=== PATIENT | male | born 1995 ===

== ENCOUNTER → 2020-08-01 11:00 | Outpatient (BNVA) | payer OTHER, SELFPAY | PROVIDERS: PCP Nurse Practitioner; Visit Provider Surgery ==

== ENCOUNTER 2020-08-02 10:05 | Outpatient (REF) | payer OTHER, SELFPAY ==
--- NOTE | ~2020-08-02 | XR_ITS ---
EXAMINATION: XR CHEST CLINICAL INFORMATION: Shortness of breath COMPARISON: None TECHNIQUE: 2 views of the chest were obtained. FINDINGS: No significant abnormality is noted involving the heart, lungs, mediastinum, bony thorax or soft tissues. XR/XR chest 2V IMPRESSION: Unremarkable examination.
--- NOTE | 2020-08-02 10:13 | ECG_ITS ---
Test Reason : SOB Blood Pressure : / mmHG Vent. Rate : 061 BPM Atrial Rate : 061 BPM P-R Int : 146 ms QRS Dur : 098 ms QT Int : 412 ms P-R-T Axes : 054 006 030 degrees QTc Int : 414 ms Normal sinus rhythm with sinus arrhythmia Normal ECG No previous ECGs available Referred By: Nickie Hernandes Electronically Signed By:SIMON BLAKE
[2020-08-02 12:06] LABS: MANUAL DIFF FLAG NO
[2020-08-02 12:10] LABS: Basophils Percent Auto 0.5 % (0-2); Eosinophils Absolute Auto 0.2 X10*3/uL (0.0-0.4); Eosinophils Percent Auto 2.1 % (0-4); Hemoglobin 15.4 g/dl (14.0-18.0); Imm Gran Abs Auto 0.04 X10*3/uL (0.00-0.03); Imm Gran Pct Auto 0.5 % (0.0-0.4); Lymphocytes Absolute Auto 1.8 X10*3/uL (1.2-4.9); Lymphocytes Percent Auto 21.6 % (20-40); Mean Corpuscular HGB Conc 32.1 g/dl (31.0-36.0); Mean Corpuscular Hemoglobin 28.1 pg (27.0-33.0); Mean Corpuscular Volume 87.6 fL (80-98); Mean Platelet Volume 12.4 fL (9.4-12.4); Monocytes Absolute Auto 0.7 X10*3/uL (0.1-1.2); Monocytes Percent Auto 8.8 % (2-11); Neutrophils Absolute Auto 5.6 X10*3/uL (2.0-8.3); Neutrophils Percent Auto 66.5 % (45-73); Platelet Count 223 X10*3/uL (160-400); Red Blood Count 5.48 X10*6/uL (4.60-5.80); White Blood Count 8.4 X10*3/uL (4.8-10.8)
[2020-08-02 12:39] LABS: Alanine Aminotransferase 57 U/L (0-40); Albumin Level 4.6 g/dL (3.5-5.0); Alkaline Phosphatase 66 U/L (39-117); Anion Gap 16 (12-20); Aspartate Amino Transferase 32 U/L (5-37); Bilirubin Total 0.5 mg/dL (0.0-1.0); Blood Urea Nitrogen 13 mg/dL (9-16); C Reactive Protein 0.29 mg/dL (< or = 0.50); Calcium 9.2 mg/dL (8.4-10.2); Carbon Dioxide 25 mmol/L (22-29); Chloride 104 mmol/L (96-108); Cholesterol 114 mg/dL; Estimated Average Glucose 103 mg/dL; Estimated Glomerular Filt Rate > 60; Glucose Fasting 80 mg/dL (60-99); HDL Cholesterol 34 mg/dL; Hemoglobin A1c % 5.2 %; Iron 87 mcg/dL (45-160); LDL Cholesterol Calculated 64 mg/dl; Percent Iron Saturation 26 % (15-50); Potassium 4.7 mmol/L (3.3-5.1); Sodium 140 mmol/L (135-145); Total Iron Binding Capacity 330 mcg/dL (228-428); Total Protein 7.7 g/dL (6.5-8.0); Triglycerides 84 mg/dL; Unsaturated Iron Binding 243 ug/dL
[2020-08-02 13:03] LABS: Thyroid Stimulating Hormone 1.71 uIU/mL (0.32-4.0); Vitamin D 25-OH Total 7.5 ng/mL (>30)
[2020-08-02 13:32] LABS: Vitamin B12 192 pg/mL (200-900)
[2020-08-03 12:36] LABS: H Pylori Breath Test NOT DETECTED (NOT DETECTED)
[2020-08-03 18:11] LABS: Calcium (PTHI) 9.4 mg/dL (8.6-10.3); PTHI 39 pg/mL (14-64)
[2020-08-05 05:41] LABS: Zinc 83 mcg/dL (60-130)
[2020-08-07 10:12] LABS: Vitamin A 27 mcg/dL (38-98)
[2020-08-07 12:12] LABS: Vitamin B1 <6 nmol/L (8-30)
== END 2020-08-02 10:06 | disposition home or self-care (01) ==
LOC: HO.LAB 10:05
PROVIDERS: PCP Internal Medicine; Visit Provider Surgery
DX: Z01.818 Encounter for other preprocedural examination (principal); R06.02 Shortness of breath; K21.9 Gastro-esophageal reflux disease without esophagitis; Z90.3 Acquired absence of stomach [part of]
CPT/HCPCS: 36415; 71046; 80053; 80061; 82306; 82607; 83013; 83036; 83540; 83970; 84425; 84443; 84590; 84630; 85025; 86140; 93005; 99211

== ENCOUNTER → 2020-08-18 08:21 | Outpatient (BNVA) | payer OTHER, SELFPAY | PROVIDERS: PCP Nurse Practitioner; Visit Provider Surgery | DX: E66.9 Obesity, unspecified (principal); Z68.37 Body mass index [BMI] 37.0-37.9, adult | CPT/HCPCS: 99212 ==

== ENCOUNTER → 2020-09-15 10:04 | Outpatient (BNVA) | payer OTHER, SELFPAY | PROVIDERS: PCP Nurse Practitioner; Visit Provider Surgery | DX: E66.9 Obesity, unspecified (principal); Z68.35 Body mass index [BMI] 35.0-35.9, adult | CPT/HCPCS: 99212 ==

== ENCOUNTER → 2020-09-20 08:04 | Outpatient (BNVA) | payer OTHER, SELFPAY | PROVIDERS: PCP Nurse Practitioner; Visit Provider Dietitian, Registered | DX: E66.01 Morbid (severe) obesity due to excess calories (principal); Z68.34 Body mass index [BMI] 34.0-34.9, adult | CPT/HCPCS: 97802 ==

== ENCOUNTER 2020-09-22 09:18 | Outpatient (REF) | payer OTHER, SELFPAY ==
[2020-09-22 11:01] LABS: Vitamin D 25-OH Total 67.1 ng/mL (>30)
[2020-09-27 10:57] LABS: Vitamin A 36 mcg/dL (38-98)
[2020-09-27 15:51] LABS: Vitamin B1 12 nmol/L (8-30)
== END 2020-09-22 09:19 | disposition home or self-care (01) ==
LOC: HO.LAB 09:18
PROVIDERS: PCP Internal Medicine; Visit Provider Surgery
DX: Z01.818 Encounter for other preprocedural examination (principal); E55.9 Vitamin D deficiency, unspecified; E51.9 Thiamine deficiency, unspecified; E50.9 Vitamin A deficiency, unspecified
CPT/HCPCS: 36415; 82306; 84425; 84590

== ENCOUNTER → 2020-10-18 10:36 | Outpatient (BNVA) | payer OTHER, SELFPAY | PROVIDERS: PCP Nurse Practitioner; Visit Provider Physician Assistant | DX: E66.9 Obesity, unspecified (principal); Z68.35 Body mass index [BMI] 35.0-35.9, adult | CPT/HCPCS: 99212 ==

== ENCOUNTER 2020-12-22 18:08 | Emergency (ER) | payer OTHER, SELFPAY ==
[2020-12-22 18:15] VITALS: BP 110/69; PULSE 56; RESP 16; TEMP 36.7; O2SAT 100; BMI 30.5
--- NOTE | 2020-12-22 18:54 | ED_ITS ---
HPI - Back Pain/Injury General Chief Complaint: Back Pain/Injury Stated Complaint: BACK PAIN Time Seen by Provider: 12/22/20 18:37 Source: patient and family Mode of arrival: ambulatory Limitations: no limitations History of Present Illness HPI Narrative: 5-year-old male here with left-sided back pain for 5 days. 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 No radiation of pain. No numbness or tingling. No bowel or bladder incontinence. No fevers or chills. No chest pain, shortness of breath or cough. No leg swelling or pain. Related Data Home Medications Medication Instructions Recorded Confirmed herbal complex no.174 450 mg mg PO 08/01/20 10/18/20 capsule (Echinacea and Goldenseal) levothyroxine 50 mcg tablet 50 mcg PO DAILY 08/01/20 10/18/20 naproxen 500 mg tablet 500 mg PO DAILY PRN tab 08/01/20 10/18/20 omega 3,6,9 combination no.7 92 mg mg PO 08/01/20 10/18/20 (43 mg-22 [id number]) chew tablet simvastatin 40 mg tablet 40 mg PO BEDTIME 08/01/20 10/18/20 Previous Rx's Medication Instructions Recorded cholecalciferol (vitamin D3) 1,250 1,250 mcg PO QWEEK #4 cap 08/02/20 mcg (50,000 unit) capsule thiamine HCl (vitamin B1) 100 mg 100 mg PO DAILY #30 tab 08/07/20 tablet vitamin A palmitate 10,000 unit 20,000 unit PO DAILY 30 Days #60 08/07/20 tablet tab vitamin A palmitate 10,000 unit 20,000 unit PO DAILY 30 Days #60 09/27/20 tablet tab cyclobenzaprine 10 mg tablet 10 mg PO TID PRN #10 tab 12/22/20 ibuprofen 800 mg tablet 800 mg PO Q8H PRN #20 tab 12/22/20 oxycodone 5 mg tablet 5 mg PO QID PRN #5 tab 12/22/20 Allergies Allergy/AdvReac Type Severity Reaction Status Date / Time sulfamethoxazole Allergy Intermediate rash Verified 10/18/20 10:50 [From ] trimethoprim [From Septra] Allergy Intermediate rash Verified 10/18/20 10:50 Review of Systems Review of Systems: Yes all other systems are reviewed and are negative Constitutional: Constitutional: Reports no additional constitutional complaints, Denies body ache(s), Denies chills, Denies fever(s), Denies headache(s) and Denies weakness Eyes: Eyes: Reports no additional eye complaints and Denies change in vision ENT: Reports system reviewed and no additional complaints, except as documented, Denies dizziness, Denies headache(s), Denies nasal congestion, Denies nasal discharge and Denies neck pain Cardiovascular: Cardiovascular: Reports no additional cardiovascular complaints, Denies chest pain, Denies leg edema and Denies dyspnea Respiratory: Respiratory: Reports no additional respiratory complaints, Denies cough and Denies dyspnea Gastrointestinal: Gastrointestinal: Reports no additional gastrointestinal complaints, Denies abdominal pain, Denies diarrhea, Denies nausea and Denies vomiting Genitourinary: Genitourinary: Denies urinary incontinence Musculoskeletal: Musculoskeletal: Reports no additional musculoskeletal complaints, Reports back pain, Denies arthralgias, Denies joint swelling, Denies neck pain, Denies numbness and Denies tingling Integumentary/Breasts: Skin/Breast: Reports system reviewed and no additional complaints, except as docu and Denies rash Neurologic: Reports system reviewed and no additional complaints, except as documented, Denies Abnormal speech present, Denies dizziness, Denies headache(s), Denies numbness, Denies tingling and Denies weakness PMFSH Past Medical History Attestation statement: The following information was validated with the patient. Source: old records reviewed and nursing notes reviewed Medical History Chronic fatigue Constipation Hypercholesterolemia Hypothyroidism Morbid obesity due to excess calories Surgical History No pertinent past surgical history Family History Family History Father Diabetes mellitus Mother Family history of thyroid problem High cholesterol Hypertension Herniated disc Back problem Brother No problems noted. Social History Social History Alcohol intake: never Advance Directives: No Advance Directives Information Provided: Yes Physical Exam Vital Signs: Vital Signs: Last Vital Signs Temp 98.1 F 12/22/20 18:15 Pulse 56 12/22/20 18:15 Resp 16 12/22/20 18:15 BP 110/69 12/22/20 18:15 Pulse Ox 100 12/22/20 18:15 Body Mass Index 30.5 Const: General: cooperative, healthy appearing, comfortable and no acute distress Orientation/consciousness: patient oriented x3 Limitations: no limitations HENMT: Head: Yes normal to inspection Ears: hearing grossly normal bilaterally General nose exam: Normal external nose present Face and sinus: Yes normal facial exam Mouth: Normal oral and palatal mucosa present Throat: Yes posterior oropharynx normal Eyes: General: appearance normal, both eyes and all related structures Pupils: Equal, round and reactive pupils present Neck: Neck: Yes normal visual inspection Chest: Chest palpation & inspection: normal inspection of the chest Resp: Effort & Inspection: normal respiratory effort Auscultation: clear to auscultation bilaterally Cardio: Rate: regular rate Rhythm: regular rhythm Peripheral pulses: Peripheral pulses 2+ throughout GI: Inspection: Yes normal to inspection Palpation (GI): Soft to palpation and nontender Auscultation: normal bowel sounds Back/Spine/Pelvis: Other: Left upper lumbar soft tissue tenderness with no step-offs or deformities. No midline tenderness. Palpable muscle spasm. Pain is worsened with flexion and extension of lumbar spine. Thoracic/Lumbar Spine: thoracic and lumbar spine normal to inspection Skin: General skin exam: no rashes or lesions noted Neuro: General: patient oriented x3, no focal motor deficits and normal sensation to monofilament Cranial nerves: Yes Equal, round and reactive pupils present Cognition (Neuro): normal cognition Speech: No Abnormal speech present Gait exam (Neuro): Normal gait present Motor exam (neuro): 5/5 motor strength present throughout Extrem: General: Yes normal to inspection Course Course Course Narrative: Soft tissue tenderness with palpable muscle spasm in the left mid back. Patient has had a job which requires heavy lifting and he has also been working at the gym more frequently. It consistent with muscle spasm. Patient given Toradol in the emergency department with improvement of symptoms. History of same in the past per patient in [place]. Reviewed worrisome signs and symptoms and when to return to the emergency department. Comfortable discharge home. MDM - Back Pain/Injury Medical Records Attestation: I reviewed the patient's medical records. Lab Data Attestation: I reviewed the patient's lab results. Discharge Plan Discharge Clinical Impression: Muscle spasm Patient Disposition: Home, Self-Care Instructions: Muscle Spasm (ED) Additional Instructions: Heat or ice Gentle stretching Prescriptions: New cyclobenzaprine 10 mg tablet 10 mg PO TID PRN (Reason: muscle spasm) Qty: 10 RF: 0 oxycodone 5 mg tablet 5 mg PO QID PRN (Reason: pain) Qty: 5 RF: 0 ibuprofen 800 mg tablet 800 mg PO Q8H PRN (Reason: pain) Qty: 20 RF: 0 No Action cholecalciferol (vitamin D3) 1,250 mcg (50,000 unit) capsule 1,250 mcg PO QWEEK Qty: 4 RF: 2 vitamin A palmitate 10,000 unit tablet 20,000 unit PO DAILY 30 Days Qty: 60 RF: 1 thiamine HCl (vitamin B1) 100 mg tablet 100 mg PO DAILY Qty: 30 RF: 0 vitamin A palmitate 10,000 unit tablet 20,000 unit PO DAILY 30 Days Qty: 60 RF: 0 simvastatin 40 mg tablet 40 mg PO BEDTIME RF: 0 levothyroxine 50 mcg tablet 50 mcg PO DAILY RF: 0 omega 3,6,9 combination no.7 92 mg (43 mg-22 [id number]) tablet,chewable PO RF: 0 Echinacea and Goldenseal 450 mg capsule PO RF: 0 naproxen 500 mg tablet 500 mg PO DAILY PRN (Reason: pain) RF: 0 Referrals: Arie Burden MD [Primary Care Provider] - 2 days (as needed) Stand Alone Forms: Work/School Release Interventions: ED Discharge Assessment Last Done: 12/22/20 19:16 Discharge Date/Time: 12/22/20 19:16
[2020-12-22] MEDS: Ketorolac Tromethamine 60 MG/2 ML VIAL IM (19:10)
== END 2020-12-22 19:16 | disposition home or self-care (01) ==
LOC: HO.ED 18:51
PROVIDERS: Emergency Provider Emergency Medicine; PCP Internal Medicine
DX: M54.5 Low back pain (principal); M62.830 Muscle spasm of back; Z79.899 Other long term (current) drug therapy
CPT/HCPCS: 96372; 99283; 99284; J1885

== ENCOUNTER → 2021-06-26 08:50 | Outpatient (BNVA) | payer OTHER, SELFPAY | PROVIDERS: PCP Internal Medicine; Visit Provider Nurse Practitioner Family | DX: M79.18 Myalgia, other site (principal) | CPT/HCPCS: 99202 ==

== ENCOUNTER → 2021-12-14 09:38 | Outpatient (BNVA) | payer OTHER, SELFPAY | PROVIDERS: PCP Internal Medicine; Visit Provider Physician Assistant | DX: M25.532 Pain in left wrist (principal) | CPT/HCPCS: 73110; 99203 ==

== ENCOUNTER → 2021-12-21 10:44 | Outpatient (BNVA) | payer OTHER, SELFPAY | PROVIDERS: PCP Internal Medicine; Visit Provider Physician Assistant | DX: M25.532 Pain in left wrist (principal) | CPT/HCPCS: 99213 ==

== ENCOUNTER → 2021-12-31 11:18 | Outpatient (BNVA) | payer OTHER, SELFPAY | PROVIDERS: PCP Internal Medicine; Visit Provider Physician Assistant Medical | DX: M25.532 Pain in left wrist (principal) | CPT/HCPCS: 99213 ==

== ENCOUNTER 2023-12-29 21:14 | Inpatient (IN) | payer OTHER, SELFPAY ==
--- NOTE | ~2023-12-29 | CT_ITS ---
EXAMINATION: CT ABDOMEN AND PELVIS WITH CONTRAST CLINICAL INFORMATION: Elevated white blood cell count. Right lower quadrant pain. COMPARISON: None available. TECHNIQUE: Multidetector volumetric images were obtained from the superior aspect of the liver through the pubic symphysis following administration 85 mL of Omnipaque 350 intravenous contrast. Sagittal and coronal reformatted images were obtained on the technologist's workstation. Oral contrast: No This CT examination was performed using dose optimization techniques as appropriate, variously including the following: *Automated exposure control *Adjustment of mA and/or kV according to patient size (this includes techniques or standardized protocols for targeted exams where dose is matched to indication/reason for exam; i.e. extremities or head) *Use of iterative reconstruction technique DLP: 808 mGy-cm FINDINGS: LUNG BASES: The visualized lung bases are unremarkable. LIVER, GALLBLADDER, AND BILIARY TREE: The liver is normal in size, shape, and attenuation. No focal hepatic lesion or biliary ductal dilatation is present. The gallbladder is unremarkable with no evidence of radiopaque gallstones, gallbladder wall thickening, or obvious pericholecystic inflammatory changes. PANCREAS: Unremarkable. SPLEEN: Unremarkable. ADRENAL GLANDS: Unremarkable. KIDNEYS AND URETERS: The kidneys are normal in size, shape, and attenuation. No hydronephrosis, hydroureter, or calculi seen. No perinephric stranding. BLADDER: Unremarkable. GASTROINTESTINAL TRACT: The appendix is abnormally enlarged with an outer wall diameter of up to 14 mm. Reticulation of the mesoappendix is visualized. 2 calcified appendicoliths are identified within the lumen of the appendix, the largest measuring 4 mm x 5 mm. Findings are consistent with appendicitis. No free intraperitoneal fluid or free intraperitoneal gas collections are identified. The terminal ileum is normal in appearance. Normal appearance of the stomach, duodenum and small bowel. ABDOMINAL WALL: No significant hernia is appreciated. LYMPH NODES: As scattered right lower quadrant small bowel mesenteric lymph nodes at the upper limits of normal size are noted and may represent reactive lymphadenopathy. VASCULAR: Unremarkable. PELVIC VISCERA: Unremarkable. OSSEOUS STRUCTURES: Unremarkable. CT/CT abdomen pelvis w IV con IMPRESSION: Findings consistent with acute uncomplicated appendicitis. The appendix is abnormally enlarged with an outer wall diameter of 14 mm. Two (2) calcified appendicoliths are identified within the lumen of the appendix, the largest measuring 4 mm x 5 mm. No evidence of appendiceal perforation. No free intraperitoneal fluid or free intraperitoneal gas collections. This critical result (acute appendicitis) was discussed with Karina Green MD by telephone at 12/30/2023 3:54 AM and it was ascertained that the content and urgency of the report was understood at the time of direct communication.
[2023-12-29 21:52] VITALS: BP 134/46; PULSE 82; RESP 16; TEMP 36.6; O2SAT 100; BMI 36.3
[2023-12-29 22:04] LABS: MANUAL DIFF FLAG NO
[2023-12-29 22:11] LABS: Basophils Absolute Auto 0.1 X10*3/uL (0.0-0.2); Basophils Percent Auto 0.3 % (0-2); Eosinophils Percent Auto 0.1 % (0-4); Hematocrit 47.3 % (42.0-52.0); Hemoglobin 15.7 g/dl (14.0-18.0); Imm Gran Abs Auto 0.09 X10*3/uL (0.00-0.03); Imm Gran Pct Auto 0.5 % (0.0-0.4); Lymphocytes Absolute Auto 1.1 X10*3/uL (1.2-4.9); Lymphocytes Percent Auto 5.5 % (20-40); Mean Corpuscular HGB Conc 33.2 g/dl (31.0-36.0); Mean Corpuscular Hemoglobin 28.6 pg (27.0-33.0); Mean Corpuscular Volume 86.3 fL (80.0-98.0); Mean Platelet Volume 11.8 fL (9.4-12.4); Monocytes Absolute Auto 1.4 X10*3/uL (0.1-1.2); Monocytes Percent Auto 7.1 % (2-11); Neutrophils Absolute Auto 16.8 x10*3/uL (2.0-8.3); Neutrophils Percent Auto 86.5 % (45-73); Platelet Count 254 X10*3/uL (160-400); Red Blood Count 5.48 X10*6/uL (4.60-5.80); White Blood Count 19.4 X10*3/uL (4.8-10.8)
[2023-12-29 22:14] LABS: Appearance Urine Clear; Color Urine Yellow; Glucose Urine UA Negative (Negative); Leukocyte Esterase Urine Negative (Negative); Nitrite Urine Negative (Negative); PH 5.5 (5.0-9.0); Specific Gravity - Urine 1.025 (1.005-1.025); Urine Blood Negative (Negative); Urine Ketones 15 mg/dL (Negative); Urine Protein Negative (Neg-Trace)
[2023-12-29 22:19] LABS: Alanine Aminotransferase 49 U/L (0-40); Alkaline Phosphatase 77 U/L (39-117); Anion Gap 14 (12-20); Aspartate Amino Transferase 29 U/L (5-37); Bilirubin Total 0.4 mg/dL (0.0-1.0); Blood Urea Nitrogen 19 mg/dL (9-16); Calcium 10.8 mg/dL (8.4-10.2); Carbon Dioxide 28 mmol/L (22-29); Chloride 103 mmol/L (96-108); Creatinine Clr Calc Pharmacy 104.9; Estimated Glomerular Filt Rate > 60; Glucose Random 109 mg/dL (60-115); Lipase 18 U/L (8-78); Potassium 4.7 mmol/L (3.3-5.1); Sodium 140 mmol/L (135-145); Total Protein 8.9 g/dL (6.5-8.0)
[2023-12-30] VITALS (17 sets, daily range): BP systolic 106–134; BP diastolic 43–72; PULSE 53–80; RESP 14–20; TEMP 36.2–37; O2SAT 93–100; BMI 37.5
--- NOTE | 2023-12-30 02:41 | ED.ABDPAIN ---
HPI - Abdominal Pain General Chief Complaint: Abdominal Pain Stated Complaint: abd pain,vomiting,dizzy Time Seen by Provider: 12/30/23 02:24 Source: patient and family Mode of arrival: ambulatory Limitations: no limitations History of Present Illness ED Provider: DEEPA JOHNSON narrative: 28 yo male with obesity and myofascial pain syndrome here with c/o n/v and onset of periumbilical abdominal pain radiating to RLQ since around 5pm yesterday. Last ate at 5pm yesterday. No fevers hurts to walk and move. No diarrhea. No sick contacts or abx use. MD elicited complaint: abdominal pain Pertinent past history: none Onset (ago): hour(s) (5pm on Friday) Pain Consistency: constant Location: periumbilical and RLQ Severity: moderate Quality: aching Radiation: none Migration to: no migration Exacerbating factors: eating and movement Relieving factors: nothing Associated symptoms: nausea and vomiting Related Data Home Medications ?Medication ?Instructions ?Recorded ?Confirmed levothyroxine 50 mcg tablet 50 mcg PO DAILY 08/01/20 06/26/21 naproxen 500 mg tablet 500 mg PO DAILY PRN pain 08/01/20 10/18/20 omega 3,6,9 combination no.7 92 mg mg PO 08/01/20 06/26/21 (43 mg-22 [id number]) chew tablet simvastatin 40 mg tablet 40 mg PO BEDTIME 08/01/20 06/26/21 Previous Rx's ?Medication ?Instructions ?Recorded cholecalciferol (vitamin D3) 1,250 1,250 mcg PO QWEEK #4 caps 08/02/20 mcg (50,000 unit) capsule cyclobenzaprine 10 mg tablet 10 mg PO TID PRN muscle spasm #10 12/22/20 tabs ibuprofen 800 mg tablet 800 mg PO Q8H PRN pain #20 tabs 12/22/20 Allergies Allergy/AdvReac Type Severity Reaction Status Date / Time sulfamethoxazole Allergy Intermediate rash Verified 12/29/23 21:55 [From ] trimethoprim [From ] Allergy Intermediate rash Verified 12/29/23 21:55 simvastatin Allergy Unknown Verified 12/29/23 21:55 Review of Systems Review of Systems Constitutional : No Weight loss, No Fever, No Chills ENT/Mouth : No sore throat, No Rhinorrhea Eyes: No Swelling, No Redness Cardiovascular : No Chest Pain, No SOB, NoEdema Respiratory : No Cough, No Sputum, No Wheezing Gastrointestinal : Positive Nausea, Positive Vomiting, no Diarrhea, positive abdominal Pain, No Hematochezia, No Melena Genitourinary : No Dysuria, No Urinary Frequency, No Hematuria, No Urgency Musculoskeletal : No joint pain, No Myalgias, No Joint Swelling Skin : No Skin Lesions, No rash Neuro : No Weakness, No Numbness, No Dizziness, No Headache Psych : No Anxiety/Panic, No Depression All other systems reviewed and are negative. [facility] Past Medical History Attestation statement: The following information was validated with the patient. Source: old records reviewed Medical History Constipation Chronic fatigue Hypothyroidism Morbid obesity due to excess calories Hypercholesterolemia Surgical History No pertinent past surgical history Family History Family History Father Diabetes mellitus Mother Family history of thyroid problem High cholesterol Hypertension Herniated disc Back problem Brother No problems noted. Social History Social History (Updated 12/30/23 @ 03:25 by Karina Green DO) Alcohol intake: never Patient Tobacco Use Status: Never used Tobacco Advance Directives: No Advance Directives Information Provided: Yes Physical Exam ED Vital Signs: Vital Signs - 24 hr 12/29/23 21:52 12/30/23 03:58 Temperature 97.9 F 98.5 F Pulse Rate 82 77 Respiratory Rate 16 17 Blood Pressure 134/46 L 111/43 L Pulse Oximetry 100 98 Oxygen Delivery Method Room Air Room Air BMI result Body Mass Index 36.3 Appearance: Alert. Oriented X3. No acute distress. Eyes: Pupils equal, round and reactive to light. ENT: Pharynx normal. Neck: Normal inspection. Neck supple. CVS: Normal heart rate and rhythm. Pulses normal. Respiratory: No respiratory distress. Breath sounds normal. Abdomen: Soft and moderate RLQ ttp no rebound or guarding Skin: Skin warm and dry. Normal skin color. Normal skin turgor. Extremities: No lower extremity edema. No calf ttp Neuro: Oriented X 3. No motor deficit. No sensory deficit. Medical Decision Making Medical Decision Making MDM Narrative: 28 yo male no prior surgeries here with n/v and RLQ pain at this time will obtain labs, hydrate obtain CT scan to evaluate for appendicitis, colitis. IV toradol and IV morphine for pain Differential Diagnosis Differential Diagnoses: The differential diagnosis associated with the presentation includes colitis, appendicitis, renal colic Admission/Observation Consideration of admission/observation: Escalation of care including admission/observation considered admit for appendicitis Consult Healthcare Provider Management of the patient was discussed with: Knockup Worker (Dr. Muñoz will admit) Lab Data [facility] Lab Attestation statement: I reviewed the patient's lab results. 12/29/23 22:00 12/29/23 22:00 Labs: Lab Results 12/29/23 12/30/23 Range/Units 22:00 03:24 WBC 19.4 H (4.8-10.8) X10*3/uL RBC 5.48 (4.60-5.80) X10*6/uL Hgb 15.7 (14.0-18.0) g/dl Hct 47.3 (42.0-52.0) % MCV 86.3 (80.0-98.0) fL MCH 28.6 (27.0-33.0) pg MCHC 33.2 (31.0-36.0) g/dl RDW 13.0 (11.0-16.0) % Plt Count 254 (160-400) X10*3/uL MPV 11.8 (9.4-12.4) fL Immature Gran % (Auto) 0.5 H (0.0-0.4) % Neut % (Auto) 86.5 H (45-73) % Lymph % (Auto) 5.5 L (20-40) % [place] % (Auto) 7.1 (2-11) % Eos % (Auto) 0.1 (0-4) % Baso % (Auto) 0.3 (0-2) % Lymph # (Auto) 1.1 L (1.2-4.9) X10*3/uL [place] # (Auto) 1.4 H (0.1-1.2) X10*3/uL Eos # (Auto) 0.0 (0.0-0.4) X10*3/uL Baso # (Auto) 0.1 (0.0-0.2) X10*3/uL Abs Immat Gran (auto) 0.09 H (0.00-0.03) X10*3/uL Absolute Neuts (auto) 16.8 H (2.0-8.3) x10*3/uL Absolute Nucleated RBC 0.000 (0.0-0.012) X10*3/uL Nucleated RBC % (auto) 0.0 (0.0-0.2) /100WBC Sodium 140 (135-145) mmol/L Potassium 4.7 (3.3-5.1) mmol/L Chloride 103 (96-108) mmol/L Carbon Dioxide 28 (22-29) mmol/L Anion Gap 14 (12-20) BUN 19 H (9-16) mg/dL Creatinine 1.33 (0.5-1.4) mg/dL Estim Creat Clear Calc 104.9 Estimated GFR > 60 Random Glucose 109 (60-115) mg/dL Lactic Acid 0.8 (0.5-2.0) mmol/L Calcium 10.8 H D (8.4-10.2) mg/dL Total Bilirubin 0.4 (0.0-1.0) mg/dL AST 29 (5-37) U/L ALT 49 H (0-40) U/L Alkaline Phosphatase 77 (39-117) U/L Total Protein 8.9 H (6.5-8.0) g/dL Albumin 5.0 (3.5-5.0) g/dL Lipase 18 (8-78) U/L Urine Color Yellow Urine Appearance Clear Urine pH 5.5 (5.0-9.0) Ur Specific [place] 1.025 (1.005-1.025) Urine Protein Negative (Neg-Trace) mg/dL Urine Glucose (UA) Negative (Negative) mg/dL Urine Ketones 15 (Negative) mg/dL Urine Blood Negative (Negative) Urine Nitrite Negative (Negative) Ur Leukocyte Esterase Negative (Negative) Independent Interpretation I performed an independent interpretation of an: CT Scan (+ appendicitis) Radiology Impression Discussion of test interpretation with radiology: I have reviewed the radiologist's reading. Independent Historian Clinical information obtained from an independent historian. History obtained from or confirmed by: Parent External Record Review External record reviewed: Outpatient record Medications Administered Discontinued Medications Generic Name Dose Route Start Last Admin Trade Name Freq PRN Reason Stop Dose Admin Lactated Ringer's 1,000 mls @ 999 mls/hr 12/30/23 02:24 12/30/23 03:26 Lr IV 12/30/23 03:24 999 mls/hr .Q1H1M ONE Administration Lactated Ringer's 1,000 mls @ 999 mls/hr 12/30/23 02:25 12/30/23 03:26 Lr IV 12/30/23 03:25 999 mls/hr .Q1H1M ONE Administration Iohexol 85 ml 12/30/23 03:35 12/30/23 03:36 Iohexol 350 Mg/Ml 100 Ml Infus..Btl IV 12/30/23 03:36 85 ml ONCE ONE Administration Critical Care Time Critical Care Time Critical Care Time: Yes Total Critical Care Time: 45 Attestation: IVF x 2L, pain improved with IV morphine, consult, admission I attest to this time spent taking care of the patient Discharge Plan Discharge Clinical Impression: Abdominal pain Qualifiers: Abdominal location: right lower quadrant Qualified Code(s): R10.31 - Right lower quadrant pain Acute appendicitis Qualifiers: Acute appendicitis type: with localized peritonitis Appendicitis gangrene presence: without gangrene Appendicitis perforation presence: without perforation Appendicitis abscess presence: without abscess Qualified Code(s): K35.30 - Acute appendicitis with localized peritonitis, without perforation or gangrene Elevated WBC count Qualifiers: Leukocytosis type: unspecified Qualified Code(s): D72.829 - Elevated white blood cell count, unspecified Patient Disposition: Admitted As Inpatient Print Language: Greenlandic
[2023-12-30] MEDS: Lactated Ringers 1,000 ML 999 ML IV ×2 (03:26)
--- NOTE | 2023-12-30 03:29 | MHC.EDTECH ---
This pct just assumed care of patient ,lactic acid and both sets of blood culture drawn and sent to lab .
[2023-12-30] MEDS: iohexoL 350 MG/ML 100 ML INFUS..BTL 85 ML IV (03:36)
[2023-12-30 03:50] LABS: Lactic Acid 0.8 mmol/L (0.5-2.0)
--- NOTE | 2023-12-30 04:11 | MHC.EDTECH ---
Patient belonging list done and vitals taken ,Patient mom at bedside .
[2023-12-30] MEDS: Ketorolac Tromethamine 15 MG/ML VIAL IVPUSH (04:26)
[2023-12-30] MEDS: ondansetron HCL 4 MG/2 ML VIAL IVPUSH (04:26)
[2023-12-30] MEDS: Morphine Sulfate 4 MG/ML CARTRIDGE IVPUSH (04:26)
[2023-12-30] MEDS: Lactated Ringers 1,000 ML 100 ML IVCONT ×2 (05:46→13:34)
[2023-12-30] MEDS: HYDROmorphone HCl 1 MG/ML SYRINGE IVPUSH (05:57)
--- NOTE | 2023-12-30 07:21 | PC.NURSE ---
report received from previous RN, patient resting comfortably on MD Toni winter at bedside to evaluate patient, patient to remain NPO, patient aware and agreeable with plan at this time
[2023-12-30] MEDS: Piperacillin Sodium/Tazobactam 3.375 GM in 0.9 % Sodium Chloride 50 ML IV ×3 (07:29→20:48)
[2023-12-30] MEDS: Lactated Ringers 1,000 ML 80 ML IVCONT ×2 (07:31→17:16)
--- NOTE | 2023-12-30 07:44 | HO.STUDHP_ITS ---
History of Present Illness Date of Service: 12/30/23 [place] [place]: 12/30/23 11:34> Chief Complaint: Abdominal pain [facility]: 12/30/23 11:34> Pt is a 28 yo M with a history of IBS-D symptoms, hypothyroidism, and hyperlipidemia who reports to the ED for worsening, constant abdominal pain for 15 hours, starting in the periumbical region and migrating to the RLQ. He reports nausea, one episode of vomiting, and one normal bowel movement yesterday at 6 PM. Has not been able to eat or drink since 5 PM yesterday due to nausea. He denies current diarrhea, hematochezia, dysuria, urinary frequency, or sick contacts. Denies any previous episodes of similar abdominal pain. <[facility] Filed: 12/30/23 11:34> Review of Systems 2 Constitutional: Constitutional: Reports poor appetite <[facility]: 12/30/23 11:34> ENT: Reports system reviewed and no additional complaints, except as documented <Floresita [facility] Filed: 12/30/23 11:34> Cardiovascular: Cardiovascular: Reports no additional cardiovascular complaints [facility] Filed: 12/30/23 11:34> Respiratory: Respiratory: Reports no additional respiratory complaints < [facility] Filed[facility] 12/30/23 11:34> Gastrointestinal: Gastrointestinal: Reports abdominal pain, Reports nausea and Reports vomiting <[facility] Filed: 12/30/23 11:34> Genitourinary: Genitourinary: Reports no additional male genitourinary complaints <[facility] Filed: 12/30/23 11:34> Musculoskeletal: Musculoskeletal: Reports no additional musculoskeletal complaints <[facility] Filed: 12/30/23 11:34> Integumentary/Breasts: Skin/Breast: Reports system reviewed and no additional complaints, except as docu <[facility] Filed: 12/30/23 11:34> Neurologic: Reports system reviewed and no additional complaints, except as documented <[facility] Filed: 12/30/23 11:34> Psychiatric: Psychiatric: Reports no additional psychiatric complaints < Filed: 12/30/23 11:34> Endocrine: Endocrine: Reports no additional endocrine complaints < Filed: 12/30/23 11:34> Hematologic/Lymphatic: Hematologic/Lymphatic: Reports no additional hematologic/lymphatic complaints < Filed: 12/30/23 11:34> [facility] Medical History: Medical History Constipation Chronic fatigue Hypothyroidism Morbid obesity due to excess calories Hypercholesterolemia < Filed: 12/30/23 11:34> Family History: Family History Father Diabetes mellitus Mother Family history of thyroid problem High cholesterol Hypertension Herniated disc Back problem Brother No problems noted. < Filed: 12/30/23 11:34> Surgical History: Surgical History H/O colonoscopy No pertinent past surgical history < Filed: 12/30/23 11:34> Social History: Social History Household Members: None Housing: Apartment Do you presently have visiting nurse or other home services: No Alcohol intake: never Comment: sore Patient Tobacco Use Status: Never used Tobacco Smoked in Last 30 Days: No Patient Interested in Nicotine Replacement: No Patient Given Instructions on How to Stop Smoking: No Second Hand Smoke Exposure: No Use of substances other than those prescribed or required for medical reasons: No Currently Displaying Signs/Symptoms of Drug Intoxication Withdrawal: No Any prior treatment program specific to substance use: No Have you been hit, kicked, punched, or otherwise hurt by someone within the past year? If so, by whom?: No Do you feel safe in your current relationship?: Yes Is there a partner from a previous relationship who is making you feel unsafe now?: No Are you made to feel afraid or neglected: No Are you DNR?: No Advance Directives: No Advance Directives Information Provided: Yes Advance Directives on File: No Do you have a plan to hurt others: No Plan Recently lost weight without trying: No Nutrition Risks: No Nutritional Risk Poor oral hygiene: No <Floresita Marie [facility] Filed: 12/30/23 11:34> Meds Allergies/Adverse reactions: Allergies Allergy/AdvReac Type Severity Reaction Status Date / Time sulfamethoxazole Allergy Intermediate rash Verified 12/30/23 12:48 [From ] trimethoprim [From ] Allergy Intermediate rash Verified 12/30/23 12:48 simvastatin Allergy Unknown PT DENIES Verified 12/30/23 12:48 <Floresita Marie - Last Filed: 12/30/23 11:34> Active Medications: Current Medications Acetaminophen (Acetaminophen 325 Mg Tablet) 650 mg PO Q6H PRN PRN Reason: Pain, Mild (Pain Scale 1-3), fever or headache Calcium Carbonate (Calcium Carbonate 750 Mg Tab.Chew) 750 mg PO Q4H PRN PRN Reason: Heartburn Lactated Ringer's (Lr) 1,000 mls @ 100 mls/hr IVCONT .Q10H [facility] Last Infusion: 12/30/23 07:31 Dose: Infused Lactated Ringer's (Lr) 1,000 mls @ 80 mls/hr IVCONT .[id number] [facility] Last Admin: 12/30/23 07:31 Dose: 80 mls/hr Piperacillin Sod/Tazobactam (Sod 3.375 gm/ Sodium Chloride) 50 mls @ 100 mls/hr IV Q6H [facility] Last Admin: 12/30/23 07:29 Dose: 100 mls/hr Levothyroxine Sodium (Levothyroxine Sodium 50 Mcg Tablet) 50 mcg PO DAILY@0600 [facility] Magnesium Hydroxide (Milk Of Magnesia 30 Ml Oral.Susp) 30 ml PO DAILY PRN PRN Reason: Constipation Melatonin (Melatonin 3 Mg Tablet) 6 mg PO BEDTIME PRN PRN Reason: Insomnia Morphine Sulfate (Morphine Sulfate 4 Mg/Ml Cartridge) 3 mg IVPUSH Q4H PRN; Protocol PRN Reason: Pain, Severe (Pain Scale 7-10) Ondansetron HCl (Ondansetron Hcl 4 Mg/2 Ml Vial) 4 mg IVPUSH Q6H PRN PRN Reason: nausea Sodium Chloride (0.9 % Sodium Chloride Flush 3 Ml Syringe) 3 ml IVFLUSH QSHIFT [facility] Last Admin: 12/30/23 07:31 Dose: Not Given <[facility] [employer] Last Filed: 12/30/23 11:34> Home medications: Home Medications ?Medication ?Instructions ?Recorded ?Confirmed ?Last Taken ?Type levothyroxine 50 mcg tablet 50 mcg PO SUMOTUWETHFR 08/01/20 12/30/23 12/29/23 History famotidine 20 mg tablet 20 mg PO BID PRN Acid Reflux 12/30/23 12/30/23 Unknown History levothyroxine 50 mcg tablet 75 mcg PO SA 12/30/23 12/30/23 12/27/23 History <[facility] [employer] Last Filed: 12/30/23 11:34> Physical Exam 2 Vital Signs and Narrative: Vital Signs: Last Vital Signs Temp 98.6 F 12/30/23 06:45 Pulse 75 12/30/23 07:34 Resp 18 12/30/23 07:34 BP 107/63 12/30/23 07:34 Pulse Ox 100 12/30/23 07:34 O2 Del Method Room Air 12/30/23 07:34 BMI result Body Mass Index 36.3 <[facility] [employer] Last Filed: 12/30/23 11:34> Const: General: cooperative, no acute distress and other (in pain) < [facility] [employer] Filed: 12/30/23 11:34> Nutritional Appearance: obese <[facility] [employer] Last Filed: 12/30/23 11:34> Orientation/consciousness: patient oriented x3 <[facility] [employer] Filed: 12/30/23 11:34> Limitations: no limitations <[facility] [employer] Filed: 12/30/23 11:34> HEENT: Head: Yes normocephalic and Yes atraumatic <[facility] [employer] Last Filed: 12/30/23 11:34> Eyes: General: appearance normal, both eyes and all related structures < [facility] [employer] Last Filed: 12/30/23 11:34> Conjunctivae: conjunctivae normal <[facility] [employer] Filed: 12/30/23 11:34> Sclerae: sclerae normal <[facility] [employer] Filed: 12/30/23 11:34> EOM: EOMs intact bilaterally [place] Filed: 12/30/23 11:34> Neck: Yes normal visual inspection and Yes no JVD <[facility] Filed: 12/30/23 11:34> Resp: Effort & Inspection: normal respiratory effort and symmetric chest movement <[facility] Filed: 12/30/23 11:34> Auscultation: clear to auscultation bilaterally <[facility] Filed: 12/30/23 11:34> Cardio: Rate: regular rate <[facility] Filed: 12/30/23 11:34> Rhythm: regular rhythm <[facility] Filed: 12/30/23 11:34> Heart sounds: S1 normal heart sound present and S2 normal heart sound present <[facility] Filed: 12/30/23 11:34> Peripheral pulses: Peripheral pulses 2+ throughout <[facility] Filed: 12/30/23 11:34> GI: Inspection: Yes normal to inspection <[facility] Filed: 12/30/23 11:34> Palpation (GI): Soft to palpation, Tenderness to palpation present (GI) at McBurney's point, periumbilically, obturator sign positive and Rovsing's sign positive, Guarding due to palpation present (GI) in the RLQ, No hepatosplenomegaly present and Rebound tenderness present <[facility] Filed: 12/30/23 11:34> Auscultation: normoactive bowel sounds <[facility] Filed: 12/30/23 11:34> : General: Yes bladder normal to palpation and Yes no CVA tenderness < [facility] Filed: 12/30/23 11:34> Back/Spine/Pelvis: Back: no CVA tenderness <[facility] Filed: 12/30/23 11:34> Skin: General skin exam: no rashes or lesions noted <[facility] Filed: 12/30/23 11:34> Neuro: General: patient oriented x3 <[facility] Filed: 12/30/23 11:34> Extrem: General: Yes no pedal edema <Floresita Filed: 12/30/23 11:34> Results Labs CBC and Chem 7: 12/29/23 22:00 12/29/23 22:00 < Filed: 12/30/23 11:34> Labs: Laboratory Results - last 24 hr 12/29/23 12/30/23 22:00 03:24 MCV 86.3 MCH 28.6 MCHC 33.2 RDW 13.0 Plt Count 254 MPV 11.8 Immature Gran % (Auto) 0.5 H Neut % (Auto) 86.5 H Lymph % (Auto) 5.5 L [place] % (Auto) 7.1 Eos % (Auto) 0.1 Baso % (Auto) 0.3 Lymph # (Auto) 1.1 L [place] # (Auto) 1.4 H Eos # (Auto) 0.0 Baso # (Auto) 0.1 Abs Immat Gran (auto) 0.09 H Absolute Neuts (auto) 16.8 H Absolute Nucleated RBC 0.000 Nucleated RBC % (auto) 0.0 Anion Gap 14 Estim Creat Clear Calc 104.9 Estimated GFR > 60 Random Glucose 109 Lactic Acid 0.8 Calcium 10.8 H D Total Bilirubin 0.4 AST 29 ALT 49 H Alkaline Phosphatase 77 Total Protein 8.9 H Albumin 5.0 Lipase 18 Urine Color Yellow Urine Appearance Clear Urine pH 5.5 Ur Specific [place] 1.025 Urine Protein Negative Urine Glucose (UA) Negative Urine Ketones 15 Urine Blood Negative Urine Nitrite Negative Ur Leukocyte Esterase Negative < Filed: 12/30/23 11:34> Imaging Radiologist's Impressions: Impressions Abdomen/Pelvis CT 12/30/23 03:30 IMPRESSION: Findings consistent with acute uncomplicated appendicitis. The appendix is abnormally enlarged with an outer wall diameter of 14 mm. Two (2) calcified appendicoliths are identified within the lumen of the appendix, the largest measuring 4 mm x 5 mm. No evidence of appendiceal perforation. No free intraperitoneal fluid or free intraperitoneal gas collections. This critical result (acute appendicitis) was discussed with Karina Green MD by telephone at 12/30/2023 3:54 AM and it was ascertained that the content and urgency of the report was understood at the time of direct communication. <Floresita Mireya - Last Filed: 12/30/23 11:34> Assessment and Plan (1) Acute appendicitis: Qualifiers: Acute appendicitis type: with localized peritonitis A ppendicitis abscess presence: without abscess Appendicitis gangrene presence: w ithout gangrene Appendicitis perforation presence: without perforation Q ualified Code(s): K35.30 - Acute appendicitis with localized peritonitis, without perforation or gangrene <Floresita Mireya Last Filed: 12/30/23 11:34> Status: Acute <Floresita Mireya Last Filed: 12/30/23 11:34> Pt is 28 yo M presenting with 15 hours of worsening, constant abdominal pain, nausea, and one episode of emesis, who was found to have tenderness to McBurney's point, positive Rovsing's sign, and obturator sign on physical exam. Labs showed leukocytosis with left shift with CT showing abnormally enlarged appendix without evidence of perforation consistent with acute appendicitis. Plan: Pre-operative IV Zosyn Morphine for pain control Zofran for nausea Diet: NPO Appendectomy this afternoon Admit for overnight observation <Floresita Mireya Last Filed: 12/30/23 11:34> Quality Stroke Does the patient have a stroke diagnosis?: No <Jorge Muñoz MD - Last Filed: 12/30/23 19:07> VTE Prior VTE?: No <Jorge Muñoz MD - Last Filed: 12/30/23 19:07> VTE Risk Level:: Medical - low <Floresita Last Filed: 12/30/23 11:34> VTE Device Contraindication: N/A - Device Ordered < Last Filed: 12/30/23 11:34> VTE Drug Contraindication: Treatment Not Indicated <Floresita Last Filed: 12/30/23 11:34>
--- NOTE | 2023-12-30 08:01 | PM.HPGS ---
History of Present Illness History of Present Illness Date of Service: 12/31/23 Chief complaint: Appendicitis Narrative: Meet Noel is a 28 year old male here in the ER for right lower quadrant pain. He says that this started about 05:00 o'clock yesterday afternoon. He says that he had some pain on the umbilical area and this seemed to have gotten worse through the course of the night. He says that this seemed to have moved to the lower abdomen mostly on the right side. He had vomited 1 time prior to coming to the ER In view of the persistence of pain, he came to the ER last night. He continues to have pain on the right lower quadrant today. Review of Systems Constitutional: Constitutional: Denies chills and Denies fever(s) Cardiovascular: Cardiovascular: Denies chest pain, Denies dyspnea and Denies dyspnea on exertion Respiratory: Respiratory: Denies cough, Denies dyspnea and Denies dyspnea on exertion Gastrointestinal: Gastrointestinal: Denies hematochezia and Denies change in bowel habits Genitourinary: Genitourinary: Denies hematuria and Denies difficulty urinating Musculoskeletal: Musculoskeletal: Denies back pain and Denies limited range of motion Neurologic: Denies focal weakness and Denies convulsions Psychiatric: Psychiatric: Denies depression and Denies mood swings PMFSH Past Medical History Medical History Constipation Chronic fatigue Hypothyroidism Morbid obesity due to excess calories Hypercholesterolemia Family History Family History Father Diabetes mellitus Mother Family history of thyroid problem High cholesterol Hypertension Herniated disc Back problem Brother No problems noted. Surgical History Surgical History H/O colonoscopy No pertinent past surgical history Social History Social History Household Members: None Housing: Apartment Do you presently have visiting nurse or other home services: No Alcohol intake: never Comment: sore Patient Tobacco Use Status: Never used Tobacco Smoked in Last 30 Days: No Patient Interested in Nicotine Replacement: No Patient Given Instructions on How to Stop Smoking: No Second Hand Smoke Exposure: No Use of substances other than those prescribed or required for medical reasons: No Currently Displaying Signs/Symptoms of Drug Intoxication Withdrawal: No Any prior treatment program specific to substance use: No Have you been hit, kicked, punched, or otherwise hurt by someone within the past year? If so, by whom?: No Do you feel safe in your current relationship?: Yes Is there a partner from a previous relationship who is making you feel unsafe now?: No Are you made to feel afraid or neglected: No Are you DNR?: No Advance Directives: No Advance Directives Information Provided: Yes Advance Directives on File: No Do you have a plan to hurt others: No Plan Recently lost weight without trying: No Nutrition Risks: No Nutritional Risk Poor oral hygiene: No Meds Allergies Allergy/AdvReac Type Severity Reaction Status Date / Time sulfamethoxazole Allergy Intermediate rash Verified 12/30/23 12:48 [From ] trimethoprim [From ] Allergy Intermediate rash Verified 12/30/23 12:48 simvastatin Allergy Unknown PT DENIES Verified 12/30/23 12:48 Active Medications: Current Medications Acetaminophen (Acetaminophen 325 Mg Tablet) 650 mg PO Q6H PRN PRN Reason: Pain, Mild (Pain Scale 1-3), fever or headache Calcium Carbonate (Calcium Carbonate 750 Mg Tab.Chew) 750 mg PO Q4H PRN PRN Reason: Heartburn Lactated Ringer's (Lr) 1,000 mls @ 100 mls/hr IVCONT .Q10H [facility] Last Infusion: 12/30/23 07:31 Dose: Infused Lactated Ringer's (Lr) 1,000 mls @ 80 mls/hr IVCONT .[id number] [facility] Last Admin: 12/30/23 07:31 Dose: 80 mls/hr Piperacillin Sod/Tazobactam (Sod 3.375 gm/ Sodium Chloride) 50 mls @ 100 mls/hr IV Q6H [facility] Last Admin: 12/30/23 07:29 Dose: 100 mls/hr Levothyroxine Sodium (Levothyroxine Sodium 50 Mcg Tablet) 50 mcg PO DAILY@0600 [facility] Magnesium Hydroxide (Milk Of Magnesia 30 Ml Oral.Susp) 30 ml PO DAILY PRN PRN Reason: Constipation Melatonin (Melatonin 3 Mg Tablet) 6 mg PO BEDTIME PRN PRN Reason: Insomnia Morphine Sulfate (Morphine Sulfate 4 Mg/Ml Cartridge) 3 mg IVPUSH Q4H PRN; Protocol PRN Reason: Pain, Severe (Pain Scale 7-10) Ondansetron HCl (Ondansetron Hcl 4 Mg/2 Ml Vial) 4 mg IVPUSH Q6H PRN PRN Reason: nausea Sodium Chloride (0.9 % Sodium Chloride Flush 3 Ml Syringe) [facility] Last Admin: 12/30/23 07:31 Dose: Not Given Home Medications ?Medication ?Instructions ?Recorded ?Confirmed ?Last Taken ?Type levothyroxine 50 mcg tablet 50 mcg PO SUMOTUWETHFR 08/01/20 12/30/23 12/29/23 History famotidine 20 mg tablet 20 mg PO BID PRN Acid Reflux 12/30/23 12/30/23 Unknown History levothyroxine 50 mcg tablet 75 mcg PO SA 12/30/23 12/30/23 12/27/23 History Physical Exam Vital Signs: Vital Signs: Last Vital Signs Temp 98.6 F 12/30/23 06:45 Pulse 75 12/30/23 07:34 Resp 18 12/30/23 07:34 BP 107/63 12/30/23 07:34 Pulse Ox 100 12/30/23 07:34 O2 Del Method Room Air 12/30/23 07:34 BMI result Body Mass Index 36.3 Const: General: comfortable and no acute distress Orientation/consciousness: patient oriented x3 Neck: Neck: Yes no lymphadenopathy Resp: Auscultation: clear to auscultation bilaterally Cardio: Rhythm: regular rhythm GI: Other: Has tenderness on right lower quadrant, positive Rovsing sign Palpation (GI): Soft to palpation, Tenderness to palpation present (GI) and no guarding Neuro: General: patient oriented x3 Results Results Labs: Short CBC 12/29/23 Range/Units 22:00 WBC 19.4 H (4.8-10.8) X10*3/uL Hgb 15.7 (14.0-18.0) g/dl Hct 47.3 (42.0-52.0) % Plt Count 254 (160-400) X10*3/uL BMP 12/29/23 22:00 Sodium 140 Potassium 4.7 Chloride 103 Carbon Dioxide 28 BUN 19 H Creatinine 1.33 Calcium 10.8 H D Liver Function 12/29/23 Range/Units 22:00 Total Bilirubin 0.4 (0.0-1.0) mg/dL AST 29 (5-37) U/L ALT 49 H (0-40) U/L Alkaline Phosphatase 77 (39-117) U/L Albumin 5.0 (3.5-5.0) g/dL Urine 12/29/23 Range/Units 22:00 Urine Color Yellow Urine Appearance Clear Urine pH 5.5 (5.0-9.0) Ur Specific [place] 1.025 (1.005-1.025) Urine Protein Negative (Neg-Trace) mg/dL Urine Glucose (UA) Negative (Negative) mg/dL Laboratory Results WBC 19.4 X10*3/uL (4.8-10.8) H 12/29/23 22:00 RBC 5.48 X10*6/uL (4.60-5.80) 12/29/23 22:00 Hgb 15.7 g/dl (14.0-18.0) 12/29/23 22:00 Hct 47.3 % (42.0-52.0) 12/29/23 22:00 MCV 86.3 fL (80.0-98.0) 12/29/23 22:00 MCH 28.6 pg (27.0-33.0) 12/29/23 22:00 MCHC 33.2 g/dl (31.0-36.0) 12/29/23 22:00 RDW 13.0 % (11.0-16.0) 12/29/23 22:00 Plt Count 254 X10*3/uL (160-400) 12/29/23 22:00 MPV 11.8 fL (9.4-12.4) 12/29/23 22:00 Immature Gran % (Auto) 0.5 % (0.0-0.4) H 12/29/23 22:00 Neut % (Auto) 86.5 % (45-73) H 12/29/23 22:00 Lymph % (Auto) 5.5 % (20-40) L 12/29/23 22:00 [place] % (Auto) 7.1 % (2-11) 12/29/23 22:00 Eos % (Auto) 0.1 % (0-4) 12/29/23 22:00 Baso % (Auto) 0.3 % (0-2) 12/29/23 22:00 Lymph # (Auto) 1.1 X10*3/uL (1.2-4.9) L 12/29/23 22:00 [place] # (Auto) 1.4 X10*3/uL (0.1-1.2) H 12/29/23 22:00 Eos # (Auto) 0.0 X10*3/uL (0.0-0.4) 12/29/23 22:00 Baso # (Auto) 0.1 X10*3/uL (0.0-0.2) 12/29/23 22:00 Abs Immat Gran (auto) 0.09 X10*3/uL (0.00-0.03) H 12/29/23 22:00 Absolute Neuts (auto) 16.8 x10*3/uL (2.0-8.3) H 12/29/23 22:00 Absolute Nucleated RBC 0.000 X10*3/uL (0.0-0.012) 12/29/23 22:00 Nucleated RBC % (auto) 0.0 /100WBC (0.0-0.2) 12/29/23 22:00 Sodium 140 mmol/L (135-145) 12/29/23 22:00 Potassium 4.7 mmol/L (3.3-5.1) 12/29/23 22:00 Chloride 103 mmol/L (96-108) 12/29/23 22:00 Carbon Dioxide 28 mmol/L (22-29) 12/29/23 22:00 Anion Gap 14 (12-20) 12/29/23 22:00 BUN 19 mg/dL (9-16) H 12/29/23 22:00 Creatinine 1.33 mg/dL (0.5-1.4) 12/29/23 22:00 Estim Creat Clear Calc 104.9 12/29/23 22:00 Estimated GFR > 60 12/29/23 22:00 Random Glucose 109 mg/dL (60-115) 12/29/23 22:00 Lactic Acid 0.8 mmol/L (0.5-2.0) 12/30/23 03:24 Calcium 10.8 mg/dL (8.4-10.2) H D 12/29/23 22:00 Total Bilirubin 0.4 mg/dL (0.0-1.0) 12/29/23 22:00 AST 29 U/L (5-37) 12/29/23 22:00 ALT 49 U/L (0-40) H 12/29/23 22:00 Alkaline Phosphatase 77 U/L (39-117) 12/29/23 22:00 Total Protein 8.9 g/dL (6.5-8.0) H 12/29/23 22:00 Albumin 5.0 g/dL (3.5-5.0) 12/29/23 22:00 Lipase 18 U/L (8-78) 12/29/23 22:00 Urine Color Yellow 12/29/23 22:00 Urine Appearance Clear 12/29/23 22:00 Urine pH 5.5 (5.0-9.0) 12/29/23 22:00 Ur Specific [place] 1.025 (1.005-1.025) 12/29/23 22:00 Urine Protein Negative mg/dL (Neg-Trace) 12/29/23 22:00 Urine Glucose (UA) Negative mg/dL (Negative) 12/29/23 22:00 Urine Ketones 15 mg/dL (Negative) 12/29/23 22:00 Urine Blood Negative (Negative) 12/29/23 22:00 Urine Nitrite Negative (Negative) 12/29/23 22:00 Ur Leukocyte Esterase Negative (Negative) 12/29/23 22:00 Impressions Abdomen/Pelvis CT 12/30/23 03:30 IMPRESSION: Findings consistent with acute uncomplicated appendicitis. The appendix is abnormally enlarged with an outer wall diameter of 14 mm. Two (2) calcified appendicoliths are identified within the lumen of the appendix, the largest measuring 4 mm x 5 mm. No evidence of appendiceal perforation. No free intraperitoneal fluid or free intraperitoneal gas collections. This critical result (acute appendicitis) was discussed with Karina Green MD by telephone at 12/30/2023 3:54 AM and it was ascertained that the content and urgency of the report was understood at the time of direct communication. Abdomen CT scan report/results: report reviewed and image reviewed CT scan - pelvis: report reviewed and image reviewed Assessment and Plan (1) Acute appendicitis: Qualifiers: Acute appendicitis type: with localized peritonitis Appendicitis abscess presence: without abscess Appendicitis gangrene presence: without gangrene Appendicitis perforation presence: without perforation Qualified Code(s): K35.30 - Acute appendicitis with localized peritonitis, without perforation or gangrene Status: Acute 28-year-old male with lower quadrant pain and tenderness, with a CT scan consistent with acute appendicitis. There was note of inflammatory changes in the appendix not any perforation or abscess. There is note of a appendicoliths. I had a long discussion with him with the technique of laparoscopic appendectomy and possible conversion to open appendectomy. I explained to him the risks including but not limited to bleeding, infections, injury to other organs including bowel and the urinary tract, blood clots, pneumonia, staple line leak, as well as the benefits and alternatives. I reviewed with him what to expect postoperatively. I explained to him the option of nonoperative treatment with IV antibiotics but I told him that this is unlikely to achieve resolution in view of presence of an appendicolith. He understands and wants to proceed His aunt Gin was involved with the discussion. Quality Stroke Does the patient have a stroke diagnosis?: No VTE Prior VTE?: No VTE Risk Level:: Medical - low VTE Device Contraindication: N/A - Device Ordered VTE Drug Contraindication: Treatment Not Indicated Procedures Date of Service Date of Service: 12/31/23
--- NOTE | 2023-12-30 08:46 | PHA.MEDREC ---
Pharmacy Consult ? Medication Reconciliation Pharmacy has completed the medication reconciliation. Spoke to patient and confirm medication list. Patient said he takes levothyroxine 50 mcg every day except on saturdays when he takes 1 and ? tabs. He also only takes famotidine as needed for acid reflux.
--- NOTE | 2023-12-30 10:40 | PC.NURSE ---
report called to short stay surgery per RN patient to be transported via wheelchair around [id number]
--- NOTE | 2023-12-30 12:33 | HO.ANESPROP2 ---
PMFSH Active Problems Active Problems: pAll Active Problems Elevated WBC count (Acute) Acute appendicitis (Acute) Abdominal pain (Acute) Low back pain (Acute) Myofascial pain (Acute) Obesity (Acute) BMI 35.0-35.9,adult (Acute) BMI over 35 (Acute) BMI 37.0-37.9, adult (Acute) Vitamin B1 deficiency (Acute) Vitamin A deficiency (Acute) Vitamin D deficiency (Acute) Shortness of breath (Acute) Preoperative examination (Acute) BMI 40.0-44.9, adult (Acute) Morbid obesity due to excess calories (Acute) Past Medical History Medical History Constipation Chronic fatigue Hypothyroidism Morbid obesity due to excess calories Hypercholesterolemia Family History Family History Father Diabetes mellitus Mother Family history of thyroid problem High cholesterol Hypertension Herniated disc Back problem Brother No problems noted. Surgical History Surgical History No pertinent past surgical history Social History Social History (Updated 12/30/23 @ 03:25 by Karina Green DO) Alcohol intake: never Patient Tobacco Use Status: Never used Tobacco Advance Directives: No Advance Directives Information Provided: Yes Meds Allergies Allergy/AdvReac Type Severity Reaction Status Date / Time sulfamethoxazole Allergy Intermediate rash Verified 12/29/23 21:55 [From ] trimethoprim [From ] Allergy Intermediate rash Verified 12/29/23 21:55 simvastatin Allergy Unknown Verified 12/29/23 21:55 Active Medications: Current Medications Acetaminophen (Acetaminophen 325 Mg Tablet) 650 mg PO Q6H PRN PRN Reason: Pain, Mild (Pain Scale 1-3), fever or headache Calcium Carbonate (Calcium Carbonate 750 Mg Tab.Chew) 750 mg PO Q4H PRN PRN Reason: Heartburn Lactated Ringer's (Lr) 1,000 mls @ 100 mls/hr IVCONT .Q10H ANA M Last Infusion: 12/30/23 07:31 Dose: Infused Lactated Ringer's (Lr) 1,000 mls @ 80 mls/hr IVCONT .[id number] ANA M Last Admin: 12/30/23 07:31 Dose: 80 mls/hr Piperacillin Sod/Tazobactam (Sod 3.375 gm/ Sodium Chloride) 50 mls @ 100 mls/hr IV Q6H [facility] Last Admin: 12/30/23 07:29 Dose: 100 mls/hr Levothyroxine Sodium (Levothyroxine Sodium 50 Mcg Tablet) 50 mcg PO DAILY@0600 [facility] Magnesium Hydroxide (Milk Of Magnesia 30 Ml Oral.Susp) 30 ml PO DAILY PRN PRN Reason: Constipation Melatonin (Melatonin 3 Mg Tablet) 6 mg PO BEDTIME PRN PRN Reason: Insomnia Morphine Sulfate (Morphine Sulfate 4 Mg/Ml Cartridge) 3 mg IVPUSH Q4H PRN; Protocol PRN Reason: Pain, Severe (Pain Scale 7-10) Ondansetron HCl (Ondansetron Hcl 4 Mg/2 Ml Vial) 4 mg IVPUSH Q6H PRN PRN Reason: nausea Sodium Chloride (0.9 % Sodium Chloride Flush 3 Ml Syringe) 3 ml IVFLUSH QSHIFT [facility] Last Admin: 12/30/23 07:31 Dose: Not Given Home Medications ?Medication ?Instructions ?Recorded ?Confirmed ?Last Taken ?Type levothyroxine 50 mcg tablet 50 mcg PO SUMOTUWETHFR 08/01/20 12/30/23 12/29/23 History famotidine 20 mg tablet 20 mg PO BID PRN Acid Reflux 12/30/23 12/30/23 Unknown History levothyroxine 50 mcg tablet 75 mcg PO SA 12/30/23 12/30/23 12/27/23 History Exam Height,Weight and Vital Signs: Height 5 ft 10 in Weight 114.9 kg Last Vital Signs Temp 97.4 F 12/30/23 10:29 Pulse 80 12/30/23 10:29 Resp 20 12/30/23 10:29 BP 106/58 L 12/30/23 10:29 Pulse Ox 97 12/30/23 10:29 O2 Del Method Room Air 12/30/23 10:29 Pertinent Lab Results Pertinent Lab Results: Laboratory Tests 12/29/23 12/30/23 22:00 03:24 WBC 19.4 H RBC 5.48 Hgb 15.7 Hct 47.3 MCV 86.3 MCH 28.6 MCHC 33.2 RDW 13.0 Plt Count 254 MPV 11.8 Immature Gran % (Auto) 0.5 H Neut % (Auto) 86.5 H Lymph % (Auto) 5.5 L [place] % (Auto) 7.1 Eos % (Auto) 0.1 Baso % (Auto) 0.3 Lymph # (Auto) 1.1 L [place] # (Auto) 1.4 H Eos # (Auto) 0.0 Baso # (Auto) 0.1 Abs Immat Gran (auto) 0.09 H Absolute Neuts (auto) 16.8 H Absolute Nucleated RBC 0.000 Nucleated RBC % (auto) 0.0 Sodium 140 Potassium 4.7 Chloride 103 Carbon Dioxide 28 Anion Gap 14 BUN 19 H Creatinine 1.33 Estim Creat Clear Calc 104.9 Estimated GFR > 60 Random Glucose 109 Lactic Acid 0.8 Calcium 10.8 H D Total Bilirubin 0.4 AST 29 ALT 49 H Alkaline Phosphatase 77 Total Protein 8.9 H Albumin 5.0 Lipase 18 Urine Color Yellow Urine Appearance Clear Urine pH 5.5 Ur Specific [place] 1.025 Urine Protein Negative Urine Glucose (UA) Negative Urine Ketones 15 Urine Blood Negative Urine Nitrite Negative Ur Leukocyte Esterase Negative
--- NOTE | 2023-12-30 13:16 | P.CONAN_ITS ---
HPI - Anesthesia Eval Consult details Narrative: 28 yo male patient with acute appendicitis. For laparoscopic appendectomy PMFSH Active Problems Active Problems: All Active Problems (Updated 12/30/23 @ 13:18 by Ailyn Marcos MD) Elevated WBC count (Acute) Acute appendicitis (Acute) Abdominal pain (Acute) Low back pain (Acute) Myofascial pain (Acute) BMI 36.3 Vitamin B1 deficiency (Acute) Vitamin A deficiency (Acute) Vitamin D deficiency (Acute) Shortness of breath (Acute) Preoperative examination (Acute) BMI 40.0-44.9, adult (Acute) Morbid obesity due to excess calories (Acute) Denies RAPHAEL Past Medical History Medical History Constipation Chronic fatigue Hypothyroidism Morbid obesity due to excess calories Hypercholesterolemia Family History Family History Father Diabetes mellitus Mother Family history of thyroid problem High cholesterol Hypertension Herniated disc Back problem Brother No problems noted. Family history of problems with anesthesia: No Surgical History Surgical History H/O colonoscopy No pertinent past surgical history History of Problems with Anesthesia: No Social History Social History Alcohol intake: never Patient Tobacco Use Status: Never used Tobacco Use of substances other than those prescribed or required for medical reasons: No Are you DNR?: No Advance Directives: No Advance Directives Information Provided: Yes Meds Allergies Allergy/AdvReac Type Severity Reaction Status Date / Time sulfamethoxazole Allergy Intermediate rash Verified 12/30/23 12:48 [From ] trimethoprim [From ] Allergy Intermediate rash Verified 12/30/23 12:48 simvastatin Allergy Unknown PT DENIES Verified 12/30/23 12:48 Active Medications: Current Medications Acetaminophen (Acetaminophen 325 Mg Tablet) 650 mg PO Q6H PRN PRN Reason: Pain, Mild (Pain Scale 1-3), fever or headache Calcium Carbonate (Calcium Carbonate 750 Mg Tab.Chew) 750 mg PO Q4H PRN PRN Reason: Heartburn Lactated Ringer's (Lr) 1,000 mls @ 100 mls/hr IVCONT .Q10H ANA M Last Infusion: 12/30/23 07:31 Dose: Infused Lactated Ringer's (Lr) 1,000 mls @ 80 mls/hr IVCONT .[id number] [facility] Last Admin: 12/30/23 07:31 Dose: 80 mls/hr Piperacillin Sod/Tazobactam (Sod 3.375 gm/ Sodium Chloride) 50 mls @ 100 mls/hr IV Q6H [facility] Last Admin: 12/30/23 07:29 Dose: 100 mls/hr Levothyroxine Sodium (Levothyroxine Sodium 50 Mcg Tablet) 50 mcg PO DAILY@0600 [facility] Magnesium Hydroxide (Milk Of Magnesia 30 Ml Oral.Susp) 30 ml PO DAILY PRN PRN Reason: Constipation Melatonin (Melatonin 3 Mg Tablet) 6 mg PO BEDTIME PRN PRN Reason: Insomnia Morphine Sulfate (Morphine Sulfate 4 Mg/Ml Cartridge) 3 mg IVPUSH Q4H PRN; Protocol PRN Reason: Pain, Severe (Pain Scale 7-10) Ondansetron HCl (Ondansetron Hcl 4 Mg/2 Ml Vial) 4 mg IVPUSH Q6H PRN PRN Reason: nausea Sodium Chloride (0.9 % Sodium Chloride Flush 3 Ml Syringe) 3 ml IVFLUSH QSHIFT [facility] Last Admin: 12/30/23 07:31 Dose: Not Given Home Medications ?Medication ?Instructions ?Recorded ?Confirmed ?Last Taken ?Type levothyroxine 50 mcg tablet 50 mcg PO SUMOTUWETHFR 08/01/20 12/30/23 12/29/23 History famotidine 20 mg tablet 20 mg PO BID PRN Acid Reflux 12/30/23 12/30/23 Unknown History levothyroxine 50 mcg tablet 75 mcg PO SA 12/30/23 12/30/23 12/27/23 History Exam Height,Weight and Vital Signs: Height 5 ft 10 in Weight 114.9 kg Last Vital Signs Temp 98.3 F 12/30/23 12:52 Pulse 66 12/30/23 12:52 Resp 16 12/30/23 12:52 BP 120/59 L 12/30/23 12:52 Pulse Ox 99 12/30/23 12:52 O2 Del Method Room Air 12/30/23 12:52 Pertinent Lab Results Pertinent Lab Results: Laboratory Tests 12/29/23 12/30/23 22:00 03:24 WBC 19.4 H RBC 5.48 Hgb 15.7 Hct 47.3 MCV 86.3 MCH 28.6 MCHC 33.2 RDW 13.0 Plt Count 254 MPV 11.8 Immature Gran % (Auto) 0.5 H Neut % (Auto) 86.5 H Lymph % (Auto) 5.5 L [place] % (Auto) 7.1 Eos % (Auto) 0.1 Baso % (Auto) 0.3 Lymph # (Auto) 1.1 L [place] # (Auto) 1.4 H Eos # (Auto) 0.0 Baso # (Auto) 0.1 Abs Immat Gran (auto) 0.09 H Absolute Neuts (auto) 16.8 H Absolute Nucleated RBC 0.000 Nucleated RBC % (auto) 0.0 Sodium 140 Potassium 4.7 Chloride 103 Carbon Dioxide 28 Anion Gap 14 BUN 19 H Creatinine 1.33 Estim Creat Clear Calc 104.9 Estimated GFR > 60 Random Glucose 109 Lactic Acid 0.8 Calcium 10.8 H D Total Bilirubin 0.4 AST 29 ALT 49 H Alkaline Phosphatase 77 Total Protein 8.9 H Albumin 5.0 Lipase 18 Urine Color Yellow Urine Appearance Clear Urine pH 5.5 Ur Specific [place] 1.025 Urine Protein Negative Urine Glucose (UA) Negative Urine Ketones 15 Urine Blood Negative Urine Nitrite Negative Ur Leukocyte Esterase Negative Airway Mallampati Class: II TM Dist: >3cm Neck ROM: Full Loose/Missing/Broken Teeth: Yes (Chipped top front. Extraction and cap back top) Heart: RRR Lungs: CTAB Assessment and Plan Assessment Anesthesia Assessment: Anesthesia Plan Discussed and Chart Reviewed Final Anesthetic Review Family History of Problems with Anesthesia: No History of Problems with Anesthesia: No NPO: Yes ASA Class: III and Emergency Final Preanesthetic Review: No Changes in Pt Med Stat, Meds/Allgs Chart Reviewed, Consent Obtained/Reviewed and Anes Risks/Benef Reviewed Patient Risk: Intermediate Procedure Risk: Intermediate Assessment/Block/Sedation in SS: Assess/Block/Sedation- Anesthetic Plan Anesthetic Plan: GA Disposition: Standard PACU
--- NOTE | 2023-12-30 13:33 | PC.NURSE ---
Patient arrived from ED with one PRN angio, #20 left AC. Site asymptomatic, flushed with no issues.
--- NOTE | 2023-12-30 13:42 | PC.NURSE ---
Patient in preop. States I take a herbal medication from [facility] that helps with cholesterol, it is a large softgel, I am not sure the name . Last took this unknown medication yesterday. Dr. Marcos made aware.
--- NOTE | 2023-12-30 13:54 | MHC.CM.PN ---
CM attempted EXECUTIVE VP. Patient in OR at this time. Will follow up post op.
--- NOTE | 2023-12-30 15:29 | P.OP_ITS ---
Operative Note Operative Note Date of Service: 12/30/23 Narrative: Preop diagnosis: Acute appendicitis Postop diagnosis: Acute appendicitis, with a very erythematous appendix up to proximal 3rd Procedure: Laparoscopic appendectomy Surgeon: Meyers MD orthotics prosthetics assistant: RANDI Castro Patient is a 28-year-old male admitted for right lower quadrant pain with a CT scan consistent with acute appendicitis. He understood the technique of laparoscopic appendectomy. He was aware of the risks, benefits, and alternatives He was brought to the operating room placed supine under general anesthesia via endotracheal tube. A Brown catheter was inserted. The abdomen was prepped and draped in the usual sterile fashion. A surgical time-out was done. The patient was receiving scheduled Zosyn. I made a short infraumbilical incision with a blade 15. It was carried down through the full-thickness of the skin and subcutaneous fat down to the fascia. The fascia was incised. The peritoneum was entered. Through this incision a Street port was introduced. Pneumoperitoneum was introduced to a pressure of 15 mm Hg. The 10 mm laparoscope was inserted. I inserted a 5 mm port in the left lower quadrant well as the suprapubic margin under vision with the laparoscope. The patient was placed in a steep head down and [id number] position. Graspers were placed through the working ports. I reflected the bowel loops away from the right lower quadrant. The cecum was immediately seen. By following the cecum as we are able to visualize the appendix. I was able to apply a grasper at the distal turned to put this on stretch. The entire length of the appendix was therefore seen. The base was clearly defined. The entire appendix up to the base was erythematous but viable. I used the [place] dissector to create a mesenteric window at the base. I then used the Endo-JIM 30 mm stapler and positioned this across the base of the appendix. The stapler was fired to transect the appendix. I divided the attached mesoappendix using the LigaSure until the entire appendix was freed I retrieved the appendix through the umbilical incision using an endobag.. I then reinserted all ports and re-insufflated. I examined the area of dissection. The staple line was intact. There was no bleeding and hemostasis was confirmed. I observed all 4 quadrants. There was no other pathology seen. There was no evidence of any bowel injury I pulled the omentum and positioned this over the area of dissection Once hemostasis was reconfirmed, I desufflated through the port sites. I removed all ports under vision with the laparoscope. The umbilical port was removed last The fascia of the umbilical incision was closed with a [id number] Polysorb 0 stitch Skin closure was achieved on all incisions using Polysorb 4-0 subcuticular running sutures. Steri-Strips and dressings were applied. All incisions were infiltrated with Marcaine 0.5% for postop analgesia. The procedure was completed The patient tolerated procedure well. There were no immediate complications. Initial and final counts of sponges and instruments were correct. Estimated blood loss was less than 10 cc The patient was extubated without difficulty and transferred to the recovery room with stable vital signs.
[2023-12-30] MEDS: Acetaminophen 1,000 MG/100 ML PIGGYBACK 400 MG IV (15:48)
--- NOTE | 2023-12-30 16:21 | PM.EVENT ---
Event Note Date of Service: 12/30/23 Event Note: Seen postop Status post lap marilou Seems to have adequate pain control Stable vital signs Abdomen soft Pain management Plan to DC home tomorrow if he continues to do well Discussed with his family Gin Time Spent With Patient Time: Total time managing care of this patient today ____ minutes.
--- NOTE | 2023-12-30 16:48 | PC.NURSE ---
Patient arrived to PACU. #20 left AC present, site asymptomatic, flushed well.
[2023-12-30] MEDS: Morphine Sulfate 4 MG/ML CARTRIDGE 3 MG IVPUSH (20:50)
[2023-12-30] MEDS: 0.9 % Sodium Chloride Flush 3 ML SYRINGE IVFLUSH (20:52)
[2023-12-31] MEDS: Piperacillin Sodium/Tazobactam 3.375 GM in 0.9 % Sodium Chloride 50 ML IV ×2 (00:51→07:40)
[2023-12-31] MEDS: Morphine Sulfate 4 MG/ML CARTRIDGE 3 MG IVPUSH ×2 (01:03→06:09)
[2023-12-31 03:21] VITALS: BP 128/62; PULSE 68; RESP 18; TEMP 36.2; O2SAT 97
[2023-12-31] MEDS: Lactated Ringers 1,000 ML 80 ML IVCONT (06:05)
[2023-12-31] MEDS: Levothyroxine Sodium 50 MCG TABLET PO (06:06)
--- NOTE | 2023-12-31 06:52 | P.PNGS_ITS ---
Subjective Subjective Date of Service: 12/31/23 <[facility] Last Filed: 12/31/23 07:10> 12/31/23 <Harmony Castro PA-C - Last Filed: 12/31/23 07:40> 12/31/23 <Jorge Muñoz MD - Last Filed: 12/31/23 08:18> Interval history: Patient reports he is doing well. No acute events overnight, vitals have remained stable. Says his pain is well controlled with IV morphine 3mg every 4 hours. Icing has been helpful for alternative pain control. Has been ambulating and urinating independently without difficulty. Denies passing gas or having a BM. Ate dinner last night, reports mostly eating mashed potatoes, denies any nausea or vomiting. Tolerating fluid intake by mouth without difficulty. <[facility] Last Filed: 12/31/23 07:10> Physical Exam 2 Vital Signs: Vital Signs: Last Vital Signs Temp 97.2 F 12/31/23 03:21 Pulse 68 12/31/23 03:21 Resp 18 12/31/23 03:21 BP 128/62 12/31/23 03:21 Pulse Ox 97 12/31/23 03:21 O2 Del Method Room Air 12/31/23 03:21 BMI result Body Mass Index 37.5 <[facility] Last Filed: 12/31/23 07:10> Const: General: cooperative, healthy appearing and comfortable <[facility] Last Filed: 12/31/23 07:10> Orientation/consciousness: patient oriented x3 <[facility] Last Filed: 12/31/23 07:10> Neck: Neck: Yes normal visual inspection <[facility] Last Filed: 12/31/23 07:10> Chest: Chest palpation & inspection: normal inspection of the chest < [facility] Last Filed: 12/31/23 07:10> Resp: Effort & Inspection: normal respiratory effort and able to speak in complete sentences <[facility] Last Filed: 12/31/23 07:10> Cardio: Rate: regular rate <[facility] Last Filed: 12/31/23 07:10> Rhythm: regular rhythm <[facility] Last Filed: 12/31/23 07:10> GI: Inspection: Yes normal to inspection and Yes incision (bandages are clean, dry and intact) <[facility] Filed: 12/31/23 07:10> Palpation (GI): Soft to palpation and Tenderness to palpation present (GI) (appropriate tenderness post operatively) <[facility] Filed: 12/31/23 07:10> Neuro: General: patient oriented x3, gait normal and moves all extremities <[facility] Filed: 12/31/23 07:10> Objective Data Active Medications Acetaminophen (Acetaminophen 325 Mg Tablet) 650 mg PO Q6H PRN PRN Reason: Pain, Mild (Pain Scale 1-3), fever or headache Calcium Carbonate (Calcium Carbonate 750 Mg Tab.Chew) 750 mg PO Q4H PRN PRN Reason: Heartburn Famotidine (Famotidine 20 Mg Tablet) 20 mg PO BID PRN PRN Reason: Acid Reflux Lactated Ringer's (Lr) 1,000 mls @ 80 mls/hr IVCONT .[id number] [facility] Last Admin: 12/31/23 06:05 Dose: 80 mls/hr Documented By: ERIK Piperacillin Sod/Tazobactam (Sod 3.375 gm/ Sodium Chloride) 50 mls @ 100 mls/hr IV Q6H [facility] Last Infusion: 12/31/23 01:29 Dose: Infused Documented By: ERIK Ibuprofen (Ibuprofen 600 Mg Tablet) 600 mg PO Q6H PRN PRN Reason: Pain, Moderate(Pain Scale 4-6) Levothyroxine Sodium (Levothyroxine Sodium 75 Mcg Tablet) 75 mcg PO Sa@0600 [facility] Levothyroxine Sodium (Levothyroxine Sodium 50 Mcg Tablet) 50 mcg PO [id number]@0600 [facility] Last Admin: 12/31/23 06:06 Dose: 50 mcg Documented By: ERIK Magnesium Hydroxide (Milk Of Magnesia 30 Ml Oral.Susp) 30 ml PO DAILY PRN PRN Reason: Constipation Melatonin (Melatonin 3 Mg Tablet) 6 mg PO BEDTIME PRN PRN Reason: Insomnia Morphine Sulfate (Morphine Sulfate 4 Mg/Ml Cartridge) 3 mg IVPUSH Q4H PRN; Protocol PRN Reason: Pain, Severe (Pain Scale 7-10) Last Admin: 12/31/23 06:09 Dose: 3 mg Documented By: ERIK Ondansetron HCl (Ondansetron Hcl 4 Mg/2 Ml Vial) 4 mg IVPUSH Q6H PRN PRN Reason: nausea Oxycodone HCl (Oxycodone Hcl Immed Release 5 Mg Tablet) 10 mg PO Q4H PRN PRN Reason: Pain, Moderate(Pain Scale 4-6) Sodium Chloride (0.9 % Sodium Chloride Flush 3 Ml Syringe) 3 ml IVFLUSH [facility] Last Admin: 12/30/23 20:52 Dose: 3 ml Documented By: ERIK <[facility] - Last Filed: 12/31/23 07:10> Labs CBC & Chem 7: 12/29/23 22:00 12/29/23 22:00 <[facility] Last Filed: 12/31/23 07:10> Microbiology Microbiology Results: Microbiology 12/30/23 03:26 Blood Culture - Preliminary Blood - Venous No growth after 24 hours. 12/30/23 03:24 Blood Culture - Preliminary Blood - Venous No growth after 24 hours. <[facility] - Last Filed: 12/31/23 07:10> Procedures Date of Service Date of Service: 12/31/23 <[facility] - Last Filed: 12/31/23 07:10> 12/31/23 <Harmony Castro PA-C - Last Filed: 12/31/23 07:40> 12/31/23 <Jorge Muñoz MD - Last Filed: 12/31/23 08:18> Progress Note: A&P Assessment and plan (1) Acute appendicitis: Status: Acute <[facility] Last Filed: 12/31/23 07:10> Assessment and Plan: States he had a good night Feels well Tolerated diet last night Pain well-controlled Okay to DC home today Discussed instructions with the patient Seen and examined independently <Jorge Muñoz MD - Last Filed: 12/31/23 08:18> (2) S/P laparoscopic appendectomy: Status: Acute <[facility] Last Filed: 12/31/23 07:10> Assessment and Plan: Patient is s/p laparoscopic appendectomy due to acute appendicitis Bandages are clean, dry and intact. Appropriate tenderness post-op, abdomen soft. Remains afebrile. Pain is well controlled, will transition to PO pain medications. Continue icing the area. He is urinating and ambulating without difficulty, has yet to pass gas or having BM. Continue regular diet. Plan to discontinue antibiotics prior to discharge Possible discharge later today <[facility] Filed: 12/31/23 07:10> Patient is s/p laparoscopic appendectomy due to acute appendicitis Bandages are clean, dry and intact. Appropriate tenderness post-op, abdomen soft. Remains afebrile. Pain is well controlled, will transition to PO pain medications. Continue icing the area. He is urinating and ambulating without difficulty, has yet to pass gas or having BM. Continue regular diet. Plan to discontinue antibiotics prior to discharge Possible discharge later today POD #1 s/p lap appy, uncomplicated. Doing fairly well post op c/o epigastric pain now, pain controlled on IV analgesics. Tolerating diet. VSS. Abd exam benign with appropriate post op tenderness, dressings intact. Encouraged use of oral analgesics, OOB and incentive spirometer use. If comfortable on oral analgesics, home later today. Ordered simethicone for gas pains, colace BID. Patient comfortable with plan. <Harmony Castro PA-C - Last Filed: 12/31/23 07:40> Time Spent With Patient Time: Total time managing care of this patient today ____ minutes. <[facility] Last Filed: 12/31/23 07:10> Quality Stroke Does the patient have a stroke diagnosis?: No <[facility] Filed: 12/31/23 07:10> VTE Prior VTE?: No <[facility] Last Filed: 12/31/23 07:10> VTE Risk Level:: Medical - low <[facility] Last Filed: 12/31/23 07:10> VTE Device Contraindication: N/A - Device Ordered <[facility] Last Filed: 12/31/23 07:10> VTE Drug Contraindication: Treatment Not Indicated <[facility] Last Filed: 12/31/23 07:10>
[2023-12-31 07:35] VITALS: BP 99/56; PULSE 58; RESP 18; TEMP 36.4; O2SAT 98
[2023-12-31] MEDS: oxyCODONE HCl Immed Release 5 MG TABLET 10 MG PO (08:26)
[2023-12-31] MEDS: Docusate Sodium 100 MG CAPSULE PO (08:27)
--- NOTE | 2023-12-31 10:22 | MHC.CM.PN ---
Patient dc'd home self care via private transport prior to CM assessment.
--- NOTE | 2023-12-31 10:54 | PM.DS ---
DS: Providers Provider Date of Service: 12/31/23 Date of admission: 12/30/23 07:15 Date of discharge: 12/31/23 Primary care physician: Unknown Physician Attending physician on admission: Jorge Muñoz Attending physician on discharge: Jorge Muñoz DS: Diagnosis Discharge Diagnosis (1) Acute appendicitis: Status: Acute (2) S/P laparoscopic appendectomy: Status: Acute DS: Summary Hospital Course Hospital Course: HPI AT ADMISSION: Meet Noel is a 28 year old male here in the ER for right lower quadrant pain. He says that this started about 05:00 o'clock yesterday afternoon. He says that he had some pain on the umbilical area and this seemed to have gotten worse through the course of the night. He says that this seemed to have moved to the lower abdomen mostly on the right side. He had vomited 1 time prior to coming to the ER. In view of the persistence of pain, he came to the ER last night. He continues to have pain on the right lower quadrant today. CT scan consistent with acute appendicitis. There was note of inflammatory changes in the appendix not any perforation or abscess. There is note of a appendicoliths. HOSPITAL COURSE: The patient was admitted to the surgical service for further treatment of the acute appendicitis. He elected to proceed with laparoscopic appendectomy. He was added onto the OR schedule for that day. On 12/31/23, a laparoscopic appendectomy was performed by Dr. Muñoz without complication. The patient tolerated the procedure well. He had an uncomplicated recovery course. On POD #1, he felt well and was tolerating a solid diet without nausea or vomiting, had good pain control and was ambulating without difficulty. He was hemodynamically stable. His abdomen was benign with appropriate post op tenderness and clean and intact dressings. He felt ready for discharge. He was discharged to home on 12/31/23 in stable condition. He is to follow up in the office in 2 weeks. Status at Discharge Functional status at discharge: independent ambulation Overall status at discharge: patient is progressing back to baseline Time Attestation Discharge Coordination Time (in mins): 30 Quality: Safe Use of Opioids Does Pt have an Active Cancer Diagnosis on the Problem List?: No Quality: Stroke Does the patient have a stroke diagnosis?: No Physical Exam Vital Signs: Vital Signs: Last Vital Signs Temp 97.6 F 12/31/23 07:35 Pulse 58 12/31/23 07:35 Resp 18 12/31/23 07:35 BP 99/56 L 12/31/23 07:35 Pulse Ox 98 12/31/23 07:35 O2 Del Method Room Air 12/31/23 07:35 BMI result Body Mass Index 37.5 Const: General: comfortable, no acute distress and alert Orientation/consciousness: patient oriented x3 Resp: Effort & Inspection: normal respiratory effort GI: Inspection: No distended and Yes incision (dressings c/d/i) Palpation (GI): Soft to palpation, Tenderness to palpation present (GI) (mild incisional, epigastric) and no guarding Percussion: Yes normal to percussion Skin: General skin exam: no rashes or lesions noted Neuro: General: patient oriented x3 and moves all extremities DS: Data Data Completed and Pending Pending studies at discharge: Pending at discharge 12/30/23 15:15 Surgical [PTH] Routine Labs on day of discharge: Preliminary micro results at discharge 12/30/23 03:26 Blood Culture - Preliminary Blood - Venous No growth after 24 hours. 12/30/23 03:24 Blood Culture - Preliminary Blood - Venous No growth after 24 hours. Discharge Plan Discharge Anticipated Discharge Date/Time: 12/31/23 12:42 Patient Disposition: Home, Self-Care Discharge Diagnosis: acute appendicitis Referrals: Jorge Muñoz MD [Physician] - 2 Weeks Physician,Unknown J [Primary Care Provider] - 1 Week Discharge Medications: New docusate sodium [Colace] 100 mg capsule 100 mg PO BID Qty: 30 0RF oxycodone 5 mg tablet 5 mg PO Q4H PRN (Reason: pain (scale score 7-10)) 4 Days Qty: 24 0RF Rx Instructions: Partial Fill upon patient request. Continued famotidine 20 mg tablet 20 mg PO BID PRN (Reason: Acid Reflux) levothyroxine 50 mcg tablet 75 mcg PO SA levothyroxine 50 mcg tablet 50 mcg PO SUMOTUWETHFR Discharge Orders: Discharge Order (Routine); Ordered 12/31/23 Ordered By: Jorge Muñoz Diet: Advance to usual diet Activity on Discharge: No heavy lifting Stand Alone Forms: Patient Portal Discharge page Print Language: Maltese Activity Restrictions/Additional Instructions: If the incision area is tender, you may apply an ice pack for short intervals (No more than 20 minutes on, followed by at least 20 minutes off). Do not apply heat. Do not use creams, lotions, or topical antibiotics. These can cause infection or allergic reaction. Ok to shower 24 hours after your surgery. Remove bandaids in 2 days and replace. You have steri strips (small white cloth strips) covering your incision- these will fall off ~1 week. Follow up in office with Dr. Muñoz in 2 weeks. ([phone]) No heavy lifting (>10-20lbs) or strenuous activity! Call Your Doctor If: -Your temperature exceeds 101.5? F -You experience excessive pain or swelling -You have an unexpected reaction to medication -You have excessive bleeding -You experience continued vomiting/nausea -Your incision begins to separate -Your incision shows signs of infection such as increased redness, swelling, excessive pain, drainage (light blood or clear fluid is normal) or heat Care Plan Goals: Return to baseline health and resume normal activities following recovery period. Health Concerns: acute appendicitis Plan of Treatment: s/p laparoscopic appendectomy f/u in office in 2 weeks Assessment: Doing well post op. Discharge Date/Time: 12/31/23 09:58
--- NOTE | 2023-12-31 13:52 | HO.POSTANES ---
Post Anesthesia Evaluation Post Anesthesia Evaluation Date of Service: 12/31/23 Vital Signs: Vital Signs Temp Pulse Resp BP Pulse Ox O2 Del Method 12/31/23 07:35 97.6 F 58 18 99/56 L 98 Room Air 12/31/23 03:21 97.2 F 68 18 128/62 97 Room Air Anesthesia: General Endotracheal-GETA Mental Status: Awake Pain Control: Satisfactory Nausea/Vomiting: None Hydration: Adequate Anesthesia-Related Issues: No Anes. Related Issues
== END 2023-12-31 09:58 | disposition home or self-care (01) | DRG 399 ==
LOC: HO.ED 12-30 03:55 → HO.EDOVER 12-30 07:18 → HO.S3 12-30 16:36
PROVIDERS: Admitting Provider Surgery; Emergency Provider Emergency Medicine; Visit Provider Surgery
PROC: 0DTJ4ZZ Resection of Appendix, Percutaneous Endoscopic Approach (ICD-10-PCS; CPT 44970; principal; 2023-12-30 14:20)
DX: K35.30 Acute appendicitis with localized peritonitis, without perforation or gangrene (principal); E03.9 Hypothyroidism, unspecified; E78.5 Hyperlipidemia, unspecified; Z79.890 Hormone replacement therapy; Z79.899 Other long term (current) drug therapy
CPT/HCPCS: 44970; 36415; 74177; 80053; 81003; 83605; 83690; 85025; 87040; 88304; 99221; 99284; J0131; J1100; J1170; J1885; J2250; J2270; J2405; J2543; J2704; J2795; J3010; J7120; Q9967

== ENCOUNTER → 2023-12-30 07:15 | Outpatient (BNV) | payer OTHER, SELFPAY | PROVIDERS: Admitting Provider Surgery; Emergency Provider Emergency Medicine; Visit Provider Surgery | DX: K35.80 Unspecified acute appendicitis (principal) | CPT/HCPCS: 44970; 99024; 99222; 99499 ==

== ENCOUNTER 2024-01-07 14:02 | Outpatient (AMB) | payer OTHER, SELFPAY ==
--- NOTE | 2024-01-07 14:21 | MHC.OFFVIS ---
Vital Signs 01/07/24 14:24 Height 5 ft 10 in Weight 254 lb BMI 36.4 BP 133/63 Blood Pressure Location Rt brachial Position Sitting Pulse 74 Intake Visit Reasons: S/p appendectomy Intake Note: This patient presents for post-op assessment status post Laparoscopic appendectomy. Pt c/o; reports RUQ pain, reports occasional pain on the left side of abdomen, reports only had 2 bowel movements last week and it has been difficult for him to have a bowel movements. 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 He underwent laparoscopic appendectomy for acute appendicitis last 12/30/2023. He tolerated procedure well. He was discharged on postop day 1. He seems to be doing well at home. Denies any GI complaints. [facility] Medical History Constipation Chronic fatigue Hypothyroidism Morbid obesity due to excess calories Hypercholesterolemia Surgical History History of laparoscopic appendectomy (~12/30/23) H/O colonoscopy No pertinent past surgical history Family History Father Diabetes mellitus Mother Family history of thyroid problem High cholesterol Hypertension Herniated disc Back problem Brother No problems noted. Social History Household Members: None Housing: Apartment Do you presently have visiting nurse or other home services: No Alcohol intake: never Comment: sore Patient Tobacco Use Status: Never used Tobacco Second Hand Smoke Exposure: No Review of Systems Const Denies chills and Denies fever(s) Card Denies chest pain, Denies dyspnea and Denies dyspnea on exertion Resp Denies cough, Denies dyspnea and Denies dyspnea on exertion GI Denies hematochezia and Denies change in bowel habits Denies hematuria and Denies difficulty urinating Musc Denies back pain and Denies limited range of motion Neuro Denies focal weakness and Denies convulsions Psych Denies depression and Denies mood swings Physical Exam Vital Signs: BMI result Body Mass Index 36.4 Const General: comfortable and no acute distress GI Other: All incisions are well healing Palpation (GI): Soft to palpation, not firm, nontender and no guarding Assessment & Plan Assessment & Plan (1) S/P laparoscopic appendectomy: Code(s): Z90.49 - Acquired absence of other specified parts of digestive tract Category: Surgical Plan: He is doing well postoperatively. The path report shows acute appendicitis and periappendicitis.. He was advised to avoid lifting anything more than 20 lb for at least 3 more weeks. He can follow up on a p.r.n. basis. Coding Level of Care Code Global (72478) Diagnoses S/P laparoscopic appendectomy Z90.49
[2024-01-07 14:24] VITALS: BP 133/63; PULSE 74; BMI 36.4
== END 2024-01-07 14:52 | disposition home or self-care (01) ==
PROVIDERS: Visit Provider Surgery
DX: Z90.49 Acquired absence of other specified parts of digestive tract (principal)
CPT/HCPCS: 99024

== ENCOUNTER → 2024-01-07 14:02 | Outpatient (BNVA) | payer OTHER, SELFPAY | PROVIDERS: Visit Provider Surgery ==

== ENCOUNTER 2024-06-12 14:26 | Emergency (ER) | payer BC, SELFPAY ==
--- NOTE | ~2024-06-12 | CT_ITS ---
CLINICAL HISTORY: R ?parotitis vs abscess vs edema CT soft tissue neck with contrast Comparison: None Findings: The visualized intracranial contents are unremarkable. No prevertebral fluid. Epiglottis is within normal limits. Pharyngeal mucosal space and parapharyngeal fat are normal. Enlarged right cervical chain lymph nodes, likely reactive. There is asymmetric enlargement of the right parotid gland with periparotid fat stranding. No salivary duct stones seen. Thyroid gland is unremarkable. Visualized lung apices are clear. No acute fracture or dislocation. No fluid collection. IMPRESSION: Enlarged right parotid gland with periparotid fat stranding concerning for parotitis. Mildly enlarged right cervical chain lymph nodes, likely reactive. This document has been electronically signed by: Jak Alcaraz MD on 06/12/2024 19:44:43
[2024-06-12 14:34] VITALS: BP 125/75; PULSE 74; RESP 18; TEMP 36.9; O2SAT 98; BMI 34.4
--- NOTE | 2024-06-12 14:35 | ED.URI ---
HPI - URI/Sore Throat General Chief Complaint: Skin/Abscess/Foreign Body Stated Complaint: cold and swollen jaw Time Seen by Provider: 06/12/24 15:04 Source: patient, RN notes reviewed and old records reviewed Mode of arrival: ambulatory History of Present Illness ED Provider: Sagrario Lewis PA-C HPI Narrative: 29-year-old male with a past medical history of GERD, hypothyroidism, presenting to the ED complaining of rhinorrhea, sore throat, dry cough x last week with right sided inflamed/painful lymph node x 2 days. Denies known injury, trauma, fall, recent dental procedures, drainage in mouth, difficulty or inability to swallow, ear pain, SOB. Related Data Home Medications ?Medication ?Instructions ?Recorded ?Confirmed levothyroxine 50 mcg tablet 50 mcg PO SUMOTUWETHFR 08/01/20 12/30/23 famotidine 20 mg tablet 20 mg PO BID PRN Acid Reflux 12/30/23 12/30/23 levothyroxine 50 mcg tablet 75 mcg PO SA 12/30/23 12/30/23 Previous Rx's ?Medication ?Instructions ?Recorded docusate sodium 100 mg capsule 100 mg PO BID #30 caps 12/30/23 (Colace) oxycodone 5 mg tablet 5 mg PO Q4H PRN pain (scale score 12/30/23 7-10) 4 days #24 tabs Allergies Allergy/AdvReac Type Severity Reaction Status Date / Time sulfamethoxazole Allergy Intermediate rash Verified 06/12/24 14:36 [From Septra] trimethoprim [From Janra] Allergy Intermediate rash Verified 06/12/24 14:36 simvastatin Allergy Unknown PT DENIES Verified 06/12/24 14:36 Review of Systems Review of Systems: Yes all other systems are reviewed and are negative Constitutional: Constitutional: Reports as per [facility] Past Medical History Attestation statement: The following information was validated with the patient. Source: old records reviewed Medical History Constipation Chronic fatigue Hypothyroidism Morbid obesity due to excess calories Hypercholesterolemia Surgical History History of laparoscopic appendectomy (~12/30/23) H/O colonoscopy No pertinent past surgical history Family History Family History Father Diabetes mellitus Mother Family history of thyroid problem High cholesterol Hypertension Herniated disc Back problem Brother No problems noted. Social History Social History Household Members: None Housing: Apartment Do you presently have visiting nurse or other home services: No Alcohol intake: never Comment: sore Patient Tobacco Use Status: Never used Tobacco Second Hand Smoke Exposure: No Advance Directives: No Advance Directives Information Provided: No Physical Exam Vital Signs: Vital Signs: Last Vital Signs Temp 98.4 F 06/12/24 14:34 Pulse 74 06/12/24 14:34 Resp 18 06/12/24 14:34 BP 125/75 06/12/24 14:34 Pulse Ox 98 06/12/24 14:34 O2 Del Method Room Air 06/12/24 14:34 BMI result Body Mass Index 34.4 Const: General: cooperative, healthy appearing, no acute distress, alert and awake Orientation/consciousness: patient oriented x3 Limitations: no limitations HEENT: Other: + right-sided parotitis appreciated. No overlying cellulitis/erythema or warmth. No fluctuance/induration. Mildly tender to palpation. No appreciable intraoral infection, cellulitis, fluctuance or induration. Head: Yes normal to inspection and Yes atraumatic Ears: hearing grossly normal bilaterally, external ears normal, TM's normal bilaterally and mastoids normal General nose exam: Normal external nose present Face and sinus: Yes normal facial exam Mouth: no drooling Throat: Yes posterior oropharynx normal, Yes tonsils normal, Yes uvula midline, No peritonsillar mass, No uvula laterally displaced and No uvular edema Eyes: General: appearance normal, both eyes and all related structures EOM: EOMs intact bilaterally Neck: Neck: Yes normal visual inspection and Yes no meningeal signs Resp: Effort & Inspection: normal respiratory effort, no respiratory distress and no stridor Auscultation: clear to auscultation bilaterally Cardio: Rate: regular rate Heart sounds: S1 normal heart sound present and S2 normal heart sound present Skin: Rashes: no rashes Wounds: no wounds Neuro: General: patient oriented x3, tone normal and no meningeal signs Cranial nerves: Yes CN's II-XII intact bilaterally Gait exam (Neuro): Normal gait present Extrem: General: Yes normal to inspection Course Course Course Narrative: 29 yo male with PMH of GERD and hypothyroidism here with runny nose and R lymph node swelling but no fevers and no trauma noted, no diff swallowing. He has tried OTC meds since this started on Friday. It has worsened and gotten bigger. This has never happened before. No pain in his mouth. this is a RAPID medical screening exam the rest of the history and physical exam is to be done by the main provider. -1705--influenza a positive -1999--labs reassuring CT soft tissue neck w IV con IMPRESSION: Enlarged right parotid gland with periparotid fat stranding concerning for parotitis. Mildly enlarged right cervical chain lymph nodes, likely reactive. > results discussed with patient. Will discharge home with p.o. Augmentin due to unilateral parotitis and close PCP follow-up. Results discussed with patient including worrisome signs and symptoms and strict return precautions, and when to return to the emergency department. They verbalized understanding and feel safe for discharge at this time. Medications Administered Discontinued Medications Generic Name Dose Route Start Last Admin Trade Name Freq PRN Reason Stop Dose Admin Iohexol 100 ml 06/12/24 19:03 06/12/24 19:03 Iohexol 350 Mg/Ml 100 Ml Infus..Btl IV 06/12/24 19:04 60 ml ONCE ONE Administration Medical Decision Making Medical Decision Making [facility] Narrative: 29-year-old male with a past medical history of GERD, hypothyroidism, presenting to the ED complaining of rhinorrhea, sore throat, dry cough x last week with right sided inflamed/painful lymph node x 2 days. On exam vital signs stable, NAD, nontoxic appearing, physical exam as noted above with right-sided parotitis without overlying cellulitis or fluctuance/induration. Lower suspicion for abscess or drainable collection. No evidence of airway compromise or respiratory distress. Talking in complete sentences. Uvula midline. 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 Concern for viral illness. Lower suspicion for mumps, patient up-to-date on vaccinations. Plan: Labs, viral testing, rapid strep, CT, re-evaluate Please refer to course for remaining clinical decision making, interpretation of labs/imaging results, and discussions with consultants and/or family members. Differential Diagnosis Differential Diagnoses: The differential diagnosis associated with the presentation includes As above Admission/Observation Consideration of admission/observation: Escalation of care including admission/observation considered Lab Data MDM Lab Attestation statement: I reviewed the patient's lab results. 06/12/24 16:50 06/12/24 16:50 Labs: Lab Results 06/12/24 06/12/24 06/12/24 Range/Units 14:41 16:47 16:50 WBC 6.1 (4.8-10.8) X10*3/uL RBC 5.18 (4.60-5.80) X10*6/uL Hgb 14.5 (14.0-18.0) g/dl Hct 43.9 (42.0-52.0) % MCV 84.7 (80.0-98.0) fL MCH 28.0 (27.0-33.0) pg MCHC 33.0 (31.0-36.0) g/dl RDW 13.2 (11.0-16.0) % Plt Count 185 D (160-400) X10*3/uL MPV 10.7 (9.4-12.4) fL Immature Gran % (Auto) 0.3 (0.0-0.4) % Neut % (Auto) 54.6 (45-73) % Lymph % (Auto) 24.7 (20-40) % [place] % (Auto) 16.8 H (2-11) % Eos % (Auto) 3.3 (0-4) % Baso % (Auto) 0.3 (0-2) % Lymph # (Auto) 1.5 (1.2-4.9) X10*3/uL [place] # (Auto) 1.0 (0.1-1.2) X10*3/uL Eos # (Auto) 0.2 (0.0-0.4) X10*3/uL Baso # (Auto) 0.0 (0.0-0.2) X10*3/uL Abs Immat Gran (auto) 0.02 (0.00-0.03) X10*3/uL Absolute Neuts (auto) 3.3 (2.0-8.3) x10*3/uL Absolute Nucleated RBC 0.000 (0.0-0.012) X10*3/uL Nucleated RBC % (auto) 0.0 (0.0-0.2) /100WBC ESR 10 (0-15) MM/HR Sodium 138 (135-145) mmol/L Potassium 4.4 (3.3-5.1) mmol/L Chloride 105 (96-108) mmol/L Carbon Dioxide 26 (22-29) mmol/L Anion Gap 11 L (12-20) BUN 13 (9-16) mg/dL Creatinine 0.69 (0.5-1.4) mg/dL Estim Creat Clear Calc 195.1 Estimated GFR > 60 Random Glucose 82 (60-115) mg/dL Calcium 8.9 D (8.4-10.2) mg/dL C-Reactive Protein 2.65 H (< or = 0.50) mg/dL Influenza Type A (PCR) POSITIVE A (Negative) Influenza Type B (PCR) NEGATIVE (Negative) RSV RNA Qual (PCR) NEGATIVE (Negative) SARS-CoV-2 RNA (RT-PCR) NEGATIVE (Negative) S. pyogenes GrpA YOAV Negative (Negative) Independent Interpretation I performed an independent interpretation of an: CT Scan Radiology Impression Discussion of test interpretation with radiology: I have reviewed the radiologist's reading. External Record Review External record reviewed: Inpatient record, Office record, Outpatient record, Prior outpatient labs, Prior outpatient radiology, Primary care record and Outside ED record Tests considered The following testing was considered but not selected: As above Prescription Management I considered prescription management with: Pain Medication and Antibiotic Chronic Conditions Patient?s care impacted by: Other Social Determinants Patient?s care significantly limited by Social Determinants of Health including: Other Social Determinant of Health Discharge Plan Discharge Clinical Impression: Influenza A Patient Disposition: Still a Patient Prescriptions: No Action famotidine 20 mg tablet 20 mg PO BID PRN (Reason: Acid Reflux) levothyroxine 50 mcg tablet 75 mcg PO SA docusate sodium [Colace] 100 mg capsule 100 mg PO BID Qty: 30 0RF oxycodone 5 mg tablet 5 mg PO Q4H PRN (Reason: pain (scale score 7-10)) 4 Days Qty: 24 0RF Rx Instructions: Partial Fill upon patient request. levothyroxine 50 mcg tablet 50 mcg PO SUMOTUWETHFR Print Language: Somali
[2024-06-12 16:51] LABS: Influenza A PCR POSITIVE (Negative); Influenza B PCR NEGATIVE (Negative); Resp Syncy Virus RNA Qual PCR NEGATIVE (Negative); SARS COV2 PCR INHOUSE NEGATIVE (Negative)
[2024-06-12 16:58] LABS: MANUAL DIFF FLAG NO
[2024-06-12 16:59] LABS: Basophils Percent Auto 0.3 % (0-2); Eosinophils Absolute Auto 0.2 X10*3/uL (0.0-0.4); Eosinophils Percent Auto 3.3 % (0-4); Hematocrit 43.9 % (42.0-52.0); Hemoglobin 14.5 g/dl (14.0-18.0); Imm Gran Abs Auto 0.02 X10*3/uL (0.00-0.03); Imm Gran Pct Auto 0.3 % (0.0-0.4); Lymphocytes Absolute Auto 1.5 X10*3/uL (1.2-4.9); Lymphocytes Percent Auto 24.7 % (20-40); Mean Corpuscular Volume 84.7 fL (80.0-98.0); Mean Platelet Volume 10.7 fL (9.4-12.4); Monocytes Percent Auto 16.8 % (2-11); Neutrophils Absolute Auto 3.3 x10*3/uL (2.0-8.3); Neutrophils Percent Auto 54.6 % (45-73); Platelet Count 185 X10*3/uL (160-400); Red Blood Count 5.18 X10*6/uL (4.60-5.80); Red Cell Distribution Width 13.2 % (11.0-16.0); White Blood Count 6.1 X10*3/uL (4.8-10.8)
[2024-06-12 17:09] LABS: IDNOW Serial# 58CA691E; Strep A Nucleic Acid Negative (Negative)
[2024-06-12 17:34] LABS: Anion Gap 11 (12-20); Blood Urea Nitrogen 13 mg/dL (9-16); C Reactive Protein 2.65 mg/dL (< or = 0.50); Calcium 8.9 mg/dL (8.4-10.2); Carbon Dioxide 26 mmol/L (22-29); Chloride 105 mmol/L (96-108); Creatinine Clr Calc Pharmacy 195.1; Estimated Glomerular Filt Rate > 60; Glucose Random 82 mg/dL (60-115); Potassium 4.4 mmol/L (3.3-5.1); Sodium 138 mmol/L (135-145)
[2024-06-12 18:18] LABS: Erythrocyte Sedimentation Rate 10 MM/HR (0-15)
[2024-06-12] MEDS: iohexoL 350 MG/ML 100 ML INFUS..BTL IV (19:03)
[2024-06-12 20:03] VITALS: BP 130/72; PULSE 76; RESP 20; TEMP 36.8; O2SAT 98
[2024-06-12] MEDS: Ibuprofen 800 MG TABLET PO (20:11)
[2024-06-12] MEDS: Amoxicillin/Potassium Clav 875 MG TABLET PO (20:12)
[2024-06-12 20:31] VITALS: BP 130/72; PULSE 76; RESP 20; TEMP 36.8; O2SAT 98
== END 2024-06-12 20:31 | disposition home or self-care (01) ==
PROVIDERS: Physician Assistant; Emergency Provider Emergency Medicine; PCP Internal Medicine
DX: J10.1 Influenza due to other identified influenza virus with other respiratory manifestations (principal); R05.9 Cough, unspecified; J02.9 Acute pharyngitis, unspecified; Z03.818 Encounter for observation for suspected exposure to other biological agents ruled out
CPT/HCPCS: 0241U; 36415; 70491; 80048; 85025; 85652; 86140; 87651; 99283; 99284; Q9967

== ENCOUNTER → 2024-06-12 16:12 | Outpatient (BNV) | payer BC, SELFPAY | PROVIDERS: Emergency Provider Emergency Medicine; PCP Internal Medicine; Visit Provider Radiology Diagnostic Radiology | DX: R59.0 Localized enlarged lymph nodes (principal) | CPT/HCPCS: 70491 ==